=== PATIENT | female | born 1955 | race Caucasian/White ===

== ENCOUNTER 2017-02-07 18:24 | Observation (INO) ==
[2017-02-07] MEDS ORDERED: Ipratropium/Albuterol Neb 3 ML IH ONE ×2 (18:39→19:22)
[2017-02-07 19:05] LABS: Basophils # 0.1 K/mcL (0.0-0.2); Basophils % 0.6 %; Eosinophils # 0.1 K/mcL (0.0-0.6); Eosinophils % 1.2 %; Hematocrit 38.4 % (35.3-44.9); Hemoglobin 12.5 g/dL (11.5-15.4); Immature Granulocytes % 0.3 % (0-4); Lymphocytes # 3.7 K/mcL (0.6-4.6); Lymphocytes % 37.2 %; Mean Corpuscular HGB Conc 32.6 g/dL (31.6-35.5); Mean Corpuscular Hemoglobin 29.1 pg (28.0-33.3); Mean Corpuscular Volume 89.5 fL (83.0-100.0); Mean Platelet Volume 9.1 fL (9.4-12.4); Monocytes # 0.6 K/mcL (0.0-1.3); Monocytes % 6.4 %; Neutrophils # 5.4 K/mcL (1.6-8.9); Platelet Count 250 K/mcL (140-400); Red Blood Count 4.29 M/mcL (3.82-4.97); Segmented Neutrophils % 54.3 %
[2017-02-07 19:11] LABS: INR 1.1; Prothrombin Time 11.8 Seconds (9.4-12.1)
[2017-02-07] MEDS ORDERED: Ipratropium/Albuterol Neb 3 ML ONE (19:11)
[2017-02-07 19:14] LABS: Activated Partial Thrombo Time 24.8 Seconds (26.0-36.0)
[2017-02-07 19:19] LABS: Alanine Aminotransferase 20 Units/L (0-55); Albumin 4.2 g/dL (3.5-5.0); Albumin/Globulin Ratio 1.5 (1.1-2.2); Alkaline Phosphatase 85 Units/L (38-126); Aspartate Amino Transferase 23 Units/L (5-34); BUN/Creatinine Ratio 9 (6-26); Bilirubin,Direct 0.2 mg/dL (0.0-0.5); Bilirubin,Indirect 0.2 mg/dL (0.0-1.2); Bilirubin,Total 0.4 mg/dL (0.2-1.2); Blood Urea Nitrogen 18 mg/dL (7-20); Calcium 9.6 mg/dL (8.6-10.8); Carbon Dioxide 23 mEq/L (19-29); Chloride 105 mEq/L (98-109); Ethanol < 10 mg/dL (0-10); Globulin 2.8 g/dL (2.4-3.5); Glucose 103 mg/dL (70-99); Osmolality,Calculated 290 (280-300); Potassium 4.1 mEq/L (3.5-4.5); Sodium 139 mEq/L (136-145); eGFR For African Americans 30 (> 60); eGFR For Non-African Americans 25 (> 60)
--- NOTE | 2017-02-07 19:25 | Emergency Department Note ---
Disposition Clinical Impression: TIA (transient ischemic attack) Qualifiers: Transient cerebral ischemia type: unspecified Qualified Code(s): G45.9 - Transient cerebral ischemic attack, unspecified Disposition: Admitted As Inpatient Condition: Fair Altered Mental Status HPI - General Chief Complaint: ED Altered Mental Status Stated Complaint: "talking out of her head", sweating, SOB Time Seen by Provider: 02/07/17 18:38 Source: patient Limitations: no limitations Vital Signs Reviewed: Yes - History of Present Illness HPI Narrative: Patient is 61-year-old female past medical history of MS with 1 stent and COPD presented to the ED with shortness of breath and dysarthria. On 01/19/17, patient came in with generalized weakness and trouble speaking patient had a CT scan that showed no acute intercranial abnormalities. Patient was advised to stay and BNP admitted the patient left AMA. Patient has had no problems for the last week and a half but today the patient's other son came in with her because he states that she was having tangential intermittent statements that were unrelated to the conversation. Her sons girlfriend is a nurse and said she thought he she was having mini strokes. Patient's son noticed this activity between 5-6PM. Patient is on Plavix. Patient has not noticed fevers, cough, diarrhea, abdominal pain, rashes. - Related Data Home Medications Medication Instructions Recorded Confirmed ALPRAZolam [Xanax 1 MG Tablet] 3 mg PO TID PRN 02/07/17 02/08/17 Aspirin [Lo-Dose Aspirin EC] 81 mg PO DAILY 02/07/17 02/08/17 BuPROPion SR (12 HR) [Wellbutrin 150 mg PO BID 02/07/17 02/08/17 SR] Cholecalciferol (D-3) [Vitamin D] 5,000 unit PO BID 02/07/17 02/08/17 Clopidogrel Bisulfate [Plavix] 75 mg PO DAILY 02/07/17 02/08/17 HYDROcodone/Acet 10/325 mg [[place] 1 tab PO Q4HR PRN 02/07/17 02/08/17 10-325 mg] Lisinopril [Zestril] 20 mg PO DAILY 02/07/17 02/08/17 Metoprolol [Lopressor] 25 mg PO BID 02/07/17 02/08/17 Nitroglycerin [Nitrostat] 0.4 mg SL PRN PRN 02/07/17 02/08/17 Omeprazole [PriLOSEC] 20 mg PO DAILY 02/07/17 02/08/17 Rosuvastatin [Crestor] 40 mg PO HS 02/07/17 02/08/17 Venlafaxine HCl [Venlafaxine HCl 150 mg PO BID 02/07/17 02/08/17 ER] Zolpidem [Ambien] 5 mg PO HS 02/07/17 02/08/17 Allergies Allergy/AdvReac Type Severity Reaction Status Date / Time celecoxib [From Celebrex] Allergy Hives Verified 01/19/17 14:39 Review of Systems: ROS: constitutional: admits to dizziness Denies fever, chills, weakness, HEENT: denies Headaches, changes in vision Resp: admits to shortness of breath denies coughing CV: Denies chest pain, lower extremity edema GI: Denies nausea, vomiting, diarrhea, constipation, hematochezia, abdominal pain Skin: Denies rashes, new lesions All systems ED: reviewed and negative except as stated. Review of Systems: As Per HPI Past Medical History - Past Medical History Medical history: Reports: hyperlipidemia, hypertension, myocardial infarction Psychiatric history: Reports: anxiety - Social History Smoking Status: Never smoker Smokeless Tobacco Status: No Alcohol use: Reports: none Drug use: Reports: none Physical Exam Constitutional: Alert, in no acute distress, well nourished, well developed. Head: Normocephalic, atraumatic, normal contour and symmetric, no masses, lesions or scars Heart: Normal, regular rate and rhythm, no murmurs Lungs: Bibasilar crackles worse in R basilar region, Clear to auscultation, no wheezes, rales, or rhonchi Abdomen: Soft, nondistended, nontender, and no masses palpable, bowel sounds present and normal, no guarding or rigidity. Extremities: No clubbing, cyanosis, or edema, radial pulse +2/4, capillary refill <2sec. Skin: Skin warm and dry, no lesions, no rashes, no jaundice Neurologic: negative pronator drift, Cranial nerves II through XII intact, no focal deficits, strength within normal limits in all extremities and equal bilaterally, NIH=0 Psych: Cooperative with exam, good eye contact, cognitive function intact, judgment good insight good, speech clear, thought process logical, and goal directed - General Limitations: no limitations General appearance: alert, in no apparent distress Course Course Narrative: Patient is 61-year-old female past medical history of MS with 1 stent and COPD presented to the ED with shortness of breath and dysarthria. Physical exam showed no neurological deficits. Cardiac workup, drug screen and head CT were obtained. Cardiac workup was negative but creatinine was elevated at 2.02 from a baseline last year of 0.88. Head CT was negative for acute intracranial abnormalities. Drug screen and UA were unable to be obtained in the ED due to patient's inability to urinate. Chest x-ray for shortness of breath showed no acute abnormalities. Patient was given a DuoNeb treatment and shortness of breath resolved. Patient was initially placed on 4 L of oxygen nasal cannula by request but removed oxygen herself after the DuoNeb. Patient was given 1 L bolus of normal saline in the ED and if unable to urinate will be cath-ed on the floor. Hospitalist was called and accepted the patient for TIA workup and acute kidney failure. Vital Signs Temperature 97.8 F 02/07/17 18:25 Pulse Rate 103 02/07/17 18:25 Respiratory Rate 18 02/07/17 18:25 Blood Pressure 91/59 02/07/17 18:25 O2 Sat by Pulse Oximetry 91 02/07/17 18:25 Temperature 98.0 F 02/08/17 10:44 Pulse Rate 83 02/08/17 10:44 Respiratory Rate 18 02/08/17 10:44 Blood Pressure 104/75 02/08/17 10:44 O2 Sat by Pulse Oximetry 94 02/08/17 10:44 Oxygen Delivery Oxygen Delivery Nasal Cannula Altered Mental Status - MDM Narrative Medical decision making narrative: Patient is a 59-year-old female with a past medical history of one stent and previous ED visit 01/19/17 for confusion and dysarthria patient and presented today to the ED with with similar symptoms and shortness of breath and was admitted to the [facility] floor stable for workup for TIA and acute kidney injury. - Medical Records Medical records reviewed: Yes I reviewed the patient's medical records. - Lab Data Lab results reviewed: Yes I reviewed the patient's lab results. Lab results narrative: All Lab Results (24 Hours) 08/02/07/17 02/07/17 Range/Units 18:59 18:59 18:59 WBC 10.0 (4.3-11.1) K/mcL RBC 4.29 (3.82-4.97) M/mcL Hgb 12.5 (11.5-15.4) g/dL Hct 38.4 (35.3-44.9) % MCV 89.5 (83.0-100.0) fL MCH 29.1 (28.0-33.3) pg MCHC 32.6 (31.6-35.5) g/dL RDW 13.0 (11.5-14.5) % Plt Count 250 (140-400) K/mcL MPV 9.1 L (9.4-12.4) fL Immature Gran % 0.3 (0-4) % Seg Neutrophils % 54.3 % Lymphocytes % 37.2 % Monocytes % 6.4 % Eosinophils % 1.2 % Basophils % 0.6 % Neutrophils # 5.4 (1.6-8.9) K/mcL Lymphocytes # 3.7 (0.6-4.6) K/mcL Monocytes # 0.6 (0.0-1.3) K/mcL Eosinophils # 0.1 (0.0-0.6) K/mcL Basophils # 0.1 (0.0-0.2) K/mcL PT 11.8 (9.4-12.1) Seconds INR 1.1 APTT 24.8 L (26.0-36.0) Seconds Sodium 139 (136-145) mEq/L Potassium 4.1 (3.5-4.5) mEq/L Chloride 105 (98-109) mEq/L Carbon Dioxide 23 (19-29) mEq/L BUN 18 (7-20) mg/dL Creatinine 2.02 H (0.57-1.11) mg/dL Est GFR ( Amer) 30 L (> 60) Est GFR (Non-Af Amer) 25 L (> 60) BUN/Creatinine Ratio 9 (6-26) Glucose 103 H (70-99) mg/dL POC Glucose (58-89) Calculated Osmolality 290 (280-300) Calcium 9.6 (8.6-10.8) mg/dL Total Bilirubin 0.4 (0.2-1.2) mg/dL Direct Bilirubin 0.2 (0.0-0.5) mg/dL Indirect Bilirubin 0.2 (0.0-1.2) mg/dL AST 23 (5-34) Units/L ALT 20 (0-55) Units/L Alkaline Phosphatase 85 (38-126) Units/L Ammonia (18-72) mcmol/L Troponin I (0-0.03) ng/mL Serum Total Protein 7.0 (6.0-8.3) g/dL Albumin 4.2 (3.5-5.0) g/dL Globulin 2.8 (2.4-3.5) g/dL Albumin/Globulin Ratio 1.5 (1.1-2.2) TSH 2.896 (0.350-4.840) mcIU/mL Ethyl Alcohol < 10 (0-10) mg/dL 02/07/17 02/07/17 02/07/17 Range/Units 18:59 18:59 19:10 WBC (4.3-11.1) K/mcL RBC (3.82-4.97) M/mcL Hgb (11.5-15.4) g/dL Hct (35.3-44.9) % MCV (83.0-100.0) fL MCH (28.0-33.3) pg MCHC (31.6-35.5) g/dL RDW (11.5-14.5) % Plt Count (140-400) K/mcL MPV (9.4-12.4) fL Immature Gran % (0-4) % Seg Neutrophils % % Lymphocytes % % Monocytes % % Eosinophils % % Basophils % % Neutrophils # (1.6-8.9) K/mcL Lymphocytes # (0.6-4.6) K/mcL Monocytes # (0.0-1.3) K/mcL Eosinophils # (0.0-0.6) K/mcL Basophils # (0.0-0.2) K/mcL PT (9.4-12.1) Seconds INR APTT (26.0-36.0) Seconds Sodium (136-145) mEq/L Potassium (3.5-4.5) mEq/L Chloride (98-109) mEq/L Carbon Dioxide (19-29) mEq/L BUN (7-20) mg/dL Creatinine (0.57-1.11) mg/dL Est GFR ( Amer) (> 60) Est GFR (Non-Af Amer) (> 60) BUN/Creatinine Ratio (6-26) Glucose (70-99) mg/dL POC Glucose 95 H (58-89) Calculated Osmolality (280-300) Calcium (8.6-10.8) mg/dL Total Bilirubin (0.2-1.2) mg/dL Direct Bilirubin (0.0-0.5) mg/dL Indirect Bilirubin (0.0-1.2) mg/dL AST (5-34) Units/L ALT (0-55) Units/L Alkaline Phosphatase (38-126) Units/L Ammonia 27 (18-72) mcmol/L Troponin I 0.00 (0-0.03) ng/mL Serum Total Protein (6.0-8.3) g/dL Albumin (3.5-5.0) g/dL Globulin (2.4-3.5) g/dL Albumin/Globulin Ratio (1.1-2.2) TSH (0.350-4.840) mcIU/mL Ethyl Alcohol (0-10) mg/dL Result diagrams: 02/08/17 01:11 02/08/17 01:11 Lab Results 02/07/17 02/07/17 02/07/17 Range/Units 18:59 18:59 18:59 WBC 10.0 (4.3-11.1) K/mcL RBC 4.29 (3.82-4.97) M/mcL Hgb 12.5 (11.5-15.4) g/dL Hct 38.4 (35.3-44.9) % MCV 89.5 (83.0-100.0) fL MCH 29.1 (28.0-33.3) pg MCHC 32.6 (31.6-35.5) g/dL RDW 13.0 (11.5-14.5) % Plt Count 250 (140-400) K/mcL MPV 9.1 L (9.4-12.4) fL Immature Gran % 0.3 (0-4) % Seg Neutrophils % 54.3 % Lymphocytes % 37.2 % Monocytes % 6.4 % Eosinophils % 1.2 % Basophils % 0.6 % Neutrophils # 5.4 (1.6-8.9) K/mcL Lymphocytes # 3.7 (0.6-4.6) K/mcL Monocytes # 0.6 (0.0-1.3) K/mcL Eosinophils # 0.1 (0.0-0.6) K/mcL Basophils # 0.1 (0.0-0.2) K/mcL PT 11.8 (9.4-12.1) Seconds INR 1.1 APTT 24.8 L (26.0-36.0) Seconds Sodium 139 (136-145) mEq/L Potassium 4.1 (3.5-4.5) mEq/L Chloride 105 (98-109) mEq/L Carbon Dioxide 23 (19-29) mEq/L BUN 18 (7-20) mg/dL Creatinine 2.02 H (0.57-1.11) mg/dL Est GFR ( Amer) 30 L (> 60) Est GFR (Non-Af Amer) 25 L (> 60) BUN/Creatinine Ratio 9 (6-26) Glucose 103 H (70-99) mg/dL POC Glucose (58-89) Calculated Osmolality 290 (280-300) Calcium 9.6 (8.6-10.8) mg/dL Total Bilirubin 0.4 (0.2-1.2) mg/dL Direct Bilirubin 0.2 (0.0-0.5) mg/dL Indirect Bilirubin 0.2 (0.0-1.2) mg/dL AST 23 (5-34) Units/L ALT 20 (0-55) Units/L Alkaline Phosphatase 85 (38-126) Units/L Ammonia (18-72) mcmol/L Troponin I (0-0.03) ng/mL Serum Total Protein 7.0 (6.0-8.3) g/dL Albumin 4.2 (3.5-5.0) g/dL Globulin 2.8 (2.4-3.5) g/dL Albumin/Globulin Ratio 1.5 (1.1-2.2) TSH 2.896 (0.350-4.840) mcIU/mL Ethyl Alcohol < 10 (0-10) mg/dL 02/07/17 02/07/17 02/07/17 Range/Units 18:59 18:59 19:10 WBC (4.3-11.1) K/mcL RBC (3.82-4.97) M/mcL Hgb (11.5-15.4) g/dL Hct (35.3-44.9) % MCV (83.0-100.0) fL MCH (28.0-33.3) pg MCHC (31.6-35.5) g/dL RDW (11.5-14.5) % Plt Count (140-400) K/mcL MPV (9.4-12.4) fL Immature Gran % (0-4) % Seg Neutrophils % % Lymphocytes % % Monocytes % % Eosinophils % % Basophils % % Neutrophils # (1.6-8.9) K/mcL Lymphocytes # (0.6-4.6) K/mcL Monocytes # (0.0-1.3) K/mcL Eosinophils # (0.0-0.6) K/mcL Basophils # (0.0-0.2) K/mcL PT (9.4-12.1) Seconds INR APTT (26.0-36.0) Seconds Sodium (136-145) mEq/L Potassium (3.5-4.5) mEq/L Chloride (98-109) mEq/L Carbon Dioxide (19-29) mEq/L BUN (7-20) mg/dL Creatinine (0.57-1.11) mg/dL Est GFR ( Amer) (> 60) Est GFR (Non-Af Amer) (> 60) BUN/Creatinine Ratio (6-26) Glucose (70-99) mg/dL POC Glucose 95 H (58-89) Calculated Osmolality (280-300) Calcium (8.6-10.8) mg/dL Total Bilirubin (0.2-1.2) mg/dL Direct Bilirubin (0.0-0.5) mg/dL Indirect Bilirubin (0.0-1.2) mg/dL AST (5-34) Units/L ALT (0-55) Units/L Alkaline Phosphatase (38-126) Units/L Ammonia 27 (18-72) mcmol/L Troponin I 0.00 (0-0.03) ng/mL Serum Total Protein (6.0-8.3) g/dL Albumin (3.5-5.0) g/dL Globulin (2.4-3.5) g/dL Albumin/Globulin Ratio (1.1-2.2) TSH (0.350-4.840) mcIU/mL Ethyl Alcohol (0-10) mg/dL - Radiology Data Radiology results reviewed: Yes I reviewed the patient's radiology results. Head CT 02/07/17 19:21 IMPRESSION: No acute intracranial abnormality. D/ / Lamonte Hall MD / Lamonte Hall MD Interpreting Provider: Lamonte Hall MD Chest X-Ray 02/07/17 20:37 IMPRESSION: No acute process. D/ / Yon Floyd MD / Yon Floyd MD Interpreting Provider: Yon Floyd MD - EKG Data EKG attestation: Yes I reviewed and interpreted this EKG. EKG shows normal: sinus rhythm Rate: normal Rhythm: NSR [place]/QRS: normal When compared to previous EKG there are: no significant changes Interpretation: no acute changes Attestation Statement - Attestation Attestation: I examined this patient and my medical decision-making was reviewed with the Resident Physician. I agree with the documented findings, disposition and treatment plan as described except to the extent set forth below. In the last 2 weeks the patient has had several episodes of dysarthria and confusion when she speaks to family members. The patient states she feels fine and does not seem to be a problem to her the family is very concerned. Also note she is prescribed several medications include Vicodin 180 tablets monthly, Xanax, Ambien, and also antidepressants. We will omit her to the hospital service for TIA rule out medication etiology could also be a possibility for her intermittent symptoms.
[2017-02-07 19:39] LABS: Thyroid Stimulating Hormone 2.896 mcIU/mL (0.350-4.840)
[2017-02-07] MEDS ORDERED: 0.9 % Sodium Chloride 1,000 ML IVC ONE ×2 (21:26→23:57)
[2017-02-07] MEDS ORDERED: Naloxone 0.4 MG/ML INJ IVP PRN (22:20)
[2017-02-07] MEDS ORDERED: Albuterol 2.5 MG/3 ML NEBULIZER IH PRN (22:37)
[2017-02-07] MEDS ORDERED: Nitroglycerin 0.4 MG TAB.SUBL SL PRN (22:38)
[2017-02-07] MEDS ORDERED: 0.9 % Sodium Chloride 1,000 ML IVC SCH (22:45)
--- NOTE | 2017-02-07 22:53 | Internal Med History&Physical ---
<Minnie Liu - Last Filed: 02/07/17 23:30> Date of Encounter: 02/07/17 Time of Encounter: 22:00 Assessment and Plan (1) TIA (transient ischemic attack) Current visit: Yes Status: Acute 1 patient has been experiencing intermittent apraxia, expressive aphasia as well as disequilibrium and confusion. Presently her symptoms have resolved. She had similar symptoms approximately 2-3 weeks ago was seen in the ER and refused admission and signed out AMA. She also was recently treated for shingles and was prescribed acyclovir. Do not suspect shingles are contributing to her symptoms she has been properly treated she is afebrile no headache or nuchal rigidity. She does have ELA is on multiple medications for anxiety and pain medication. This could be contributing to her mental state. We will hold these medications for now and avoid any sedating meds. 2 we will continue with neuro checks 3 continuous cardiac monitoring 4 we will obtain cardiac echo 5 obtain carotid Dopplers 6 we will obtain lipid profile and continue with statin 7 continue with aspirin and Plavix 8 obtain MRI of head and brain without contrast 9 consult neurology as needed 10 maintain systolic blood pressure less than 160 11 encouraged patient to stop using nicotine Qualifiers: Transient cerebral ischemia type: unspecified Qualified Code(s): G45.9 - Transient cerebral ischemic attack, unspecified (2) ELA (acute kidney injury) Current visit: Yes Status: Acute 1 patient's creatinine is 2.02 appears her baseline is less than 1. Patient is on an Kavin and presently her systolic blood pressure is in the low 90s unsure if patient has been using any NSAIDs. Suspect AK as related to hypoperfusion We will hold lisinopril for now. Continue to monitor creatinine 2 we will give IV fluids overnight 3 avoid nephrotoxins (3) HTN (hypertension) Current visit: No Status: Chronic 1 presently blood pressure is in the low to mid 90s. We will hold lisinopril for now and reevaluate 2 continue with IV fluids 3 monitor intake and output 4 low-sodium diet Qualifiers: Hypertension type: essential hypertension Qualified Code(s): I10 - Essential (primary) hypertension (4) CAD (coronary artery disease) Current visit: No Status: Chronic 1patient has history of coronary artery dise with a single stent placement. 2010 100% stent stenosis in LAD with good collaterals. We will continue with dual antiplatelets as well as statins 2 we will continue with beta amy 3 obtain lipid profile 4 cardiac diet 5 nitroglycerin as needed for chest pain Qualifiers: Coronary Disease-Associated Artery/Lesion type: [place] artery [place] vs. transplanted heart: [place] heart Associated angina: without angina Qualified Code(s): I25.10 - Atherosclerotic heart disease of [place] coronary artery without angina pectoris (5) Thyroid disease Current visit: Yes Status: Acute TSH is 2.89 we will continue to monitor (6) DVT prophylaxis Current visit: No Status: Chronic sCDs Internal Medicine - H&P: HPI Chief complaint: Dysarthria Admitted From: Emergency Dept Plans for Post Hospital Care: Home History of present illness: Ms. Browning is a 61 year old female past medical history of COPD non-oxygen dependent coronary disease stent placement 2004 reevaluation of stent in 2010 did show 100% stent stenosis of LAD with good collaterals hypertension thyroid disease. Patient presented to the ER today with complaints of shortness of breath and dysarthria. According to patient on 01/19/17 she experienced similar symptoms where she had generalized weakness and difficulty speaking and presented to the ER at that time CT of her head was obtained with no acute intracranial abnormalities. Patient declined admission and further workup and signed out AMA. On 01/15/17 patient did experience and was diagnosed with shingles. She was prescribed acyclovir which she completed. Presently she denies any current lesions, pain however does admit to pruritus. Today the patient has been experiencing intermittent apraxia and xpressive aphasia. She had some occasional disequilibrium and confusion. She denies any fevers chills nausea vomiting diarrhea vision changes headaches, nuchal rigidity recent falls or head trauma. Patient does have past history of smoking-she presently vapes, she denies any illicit drug use or alcohol use. She presented to the ER with the above symptoms. According to ER records lab work did show an elevation in her creatinine at 2.02 and sees her baseline is less than 1 troponin was 0 TSH is 2.89 she is afebrile with no leukocytosis CT of head was obtained with no intracranial abnormalities noted. Chest x-ray was clear UA and drug screen has been ordered. She has been admitted for further workup and evaluation. Presently patient is alert appropriate following simple commands cranial nerves 2 through 12 are intact. Lung sounds are clear heart sounds are regular S1 and S2 with no rubs, discussed was noted. Abdomen soft nontender no pedal edema noted. Patient in son state that she is presently at her neurological baseline and that her symptoms have resolved. She is hemodynamically stable at this time I reveiwed this case with Dr Yusuf who agrees with plan Past Med Surg Social Fam HX - Past Medical History Medical history: hyperlipidemia, hypertension, myocardial infarction Psychiatric history: anxiety - Social History Smoking Status: Never smoker Smokeless Tobacco Status: No Alcohol use: none Drug use: none - Family History Father Hx Family Cardiac Disorders: Yes (SD) Hx Family Respiratory Disorders: No Hx Family Cancer: Yes (Esophagus) Hx Family GI Disorders: No Hx Family Genitourinary Disorders: No Hx Family Endocrine Disorder: No Hx Family Musculoskeletal Disorders: No Hx Family Neuromuscular Disorders: No Hx Family Neurologic Disorders: No Hx Family HEENT Disorders: No Hx Family Autoimmune Disorders: No Hx Family Reproductive Disorders: No Hx Family Psychosocial Disorders: No Hx Family Medical Disorders: No Sister Hx Family Cardiac Disorders: No Hx Family Respiratory Disorders: No Hx Family Cancer: Yes (Lung) Hx Family GI Disorders: No Hx Family Genitourinary Disorders: No Hx Family Endocrine Disorder: No Hx Family Musculoskeletal Disorders: No Hx Family Neuromuscular Disorders: No Hx Family Neurologic Disorders: No Hx Family HEENT Disorders: No Hx Family Autoimmune Disorders: No Hx Family Reproductive Disorders: No Hx Family Psychosocial Disorders: No Hx Family Medical Disorders: No Mother Hx Family Cardiac Disorders: Yes (CHF) Hx Family Respiratory Disorders: No Hx Family Cancer: No Hx Family GI Disorders: No Hx Family Genitourinary Disorders: No Hx Family Endocrine Disorder: No Hx Family Musculoskeletal Disorders: No Hx Family Neuromuscular Disorders: No Hx Family Neurologic Disorders: No Hx Family HEENT Disorders: No Hx Family Autoimmune Disorders: No Hx Family Reproductive Disorders: No Hx Family Psychosocial Disorders: No Hx Family Medical Disorders: No Internal Medicine - H&P: Meds ALPRAZolam [Xanax 1 MG Tablet] 3 mg PO TID PRN 02/07/17 [History] Aspirin [Lo-Dose Aspirin EC] 81 mg PO DAILY 02/07/17 [History] BuPROPion SR (12 HR) [Wellbutrin SR] 150 mg PO BID 02/07/17 [History] Cholecalciferol (D-3) [Vitamin D] 5,000 unit PO BID 02/07/17 [History] Clopidogrel Bisulfate [Plavix] 75 mg PO DAILY 02/07/17 [History] HYDROcodone/Acet 10/325 mg [[place] 10-325 mg] 1 tab PO Q4HR PRN 02/07/17 [History ] Lisinopril [Zestril] 20 mg PO BID 02/07/17 [History] Metoprolol [Lopressor] 25 mg PO BID 02/07/17 [History] Nitroglycerin [Nitrostat] 0.4 mg SL PRN PRN 02/07/17 [History] Omeprazole [PriLOSEC] 20 mg PO DAILY 02/07/17 [History] Rosuvastatin [Crestor] 40 mg PO HS 02/07/17 [History] Venlafaxine HCl [Venlafaxine HCl ER] 150 mg PO BID 02/07/17 [History] Zolpidem [Ambien] 5 mg PO HS 02/07/17 [History] Allergies celecoxib [From Celebrex] Allergy (Verified 01/19/17 14:39) Hives All Systems PM: A 10-system review of systems was performed and is negative for pertinent findings except as documented above in the HPI. - Constitutional Constitutional: no chills, no fever(s), no night sweats - EENT Eyes: no change in vision, no discharge, no pain, no photophobia Nose, mouth and throat: no dysphagia, no nasal discharge, no neck pain, no sore throat - Cardiovascular Cardiovascular ROS IM: no chest pain, no diaphoresis, no dyspnea, no lightheadedness, no palpitations, no syncope - Respiratory Respiratory: no cough, no dyspnea, no wheezing, no excessive phlegm production - Gastrointestinal Gastrointestinal: no abdominal pain, no diarrhea, no hematemesis, no hematochezia, no melena, no nausea, no vomiting - Genitourinary Genitourinary: no change in urinary stream, no dysuria, no flank pain, no hematuria - Musculoskeletal Musculoskeletal ROS IM: no numbness, no tingling - Integumentary Integumentary IM: pruritus - Neurological Neurological ROS: abnormal speech, behavioral changes, disequilibrium - Constitutional Vitals: Temp Pulse Resp BP Pulse Ox 98.5 F 83 16 90/62 94 02/07/17 22:25 02/07/17 22:25 02/07/17 22:25 02/07/17 22:25 02/07/17 22:25 General appearance: Present: A&O X 3, answers questions appropriately - Head Head exam: Present: atraumatic, normocephalic - Eye Eye exam: Present: EOMI, PERRL, conjuntiva pink, sclera anicteric Pupils: Present: PERRL - Neck Neck exam general surgery: Present: supple, trachea midline. Absent: lymphadenopathy - Respiratory Respiratory exam: Present: CTAB. Absent: accessory muscle use, rales, rhonchi, wheezes - Cardiovascular Cardiovascular exam: Present: RRR, +S1, +S2. Absent: diastolic murmur, gallop, rubs, systolic murmur - GI/Abdominal GI/Abdominal exam: Present: normal bowel sounds, soft, no peritoneal signs. Absent: distended, tenderness - Extremities Exam Extremities exam: Present: warm, radial pulses palpable and symmetrical. Absent : calf tenderness, cyanotic, pedal edema - Neurological Exam Neurological exam: Present: CN II-XII intact, oriented X3, no focal deficits. Absent: pronater drift, facial droop, speech deficit - Skin Skin exam: Present: dry, intact Internal Med - H&P Results - Labs CBC & Chem 7: 02/07/17 18:59 02/07/17 18:59 - EKG Data EKG shows normal: sinus rhythm - EKG Data Prior EKG available for review: yes When compared to previous EKG: there is no significant change - Diagnostic Studies Other Images Additional comments: Head CT 02/07/17 19:21 IMPRESSION: No acute intracranial abnormality. D/ / Lamonte Hall MD / Lamonte Hall MD Interpreting Provider: Lamonte Hall MD Chest X-Ray 02/07/17 20:37 IMPRESSION: No acute process. D/ / Yon Floyd MD / Yon Floyd MD Interpreting Provider: Yon Floyd MD <Ebenezer Yusuf - Last Filed: 02/07/17 23:58> Date of Encounter: 02/07/17 Internal Medicine - H&P: HPI History of present illness: Ms. Browning is a 61 year old female All Systems PM: A 10-system review of systems was performed and is negative for pertinent findings except as documented above in the HPI. - Constitutional Vitals: Temp Pulse Resp BP Pulse Ox 98.5 F 83 16 90/62 94 02/07/17 22:25 02/07/17 22:25 02/07/17 22:25 02/07/17 22:25 02/07/17 22:25 Internal Med - H&P Results - Labs CBC & Chem 7: 02/07/17 18:59 02/07/17 18:59 - Attending Attestation I independently obtained history and examined this patient and my medical decision-making was reviewed with the nurse practitioner, Minnie Liu. I agree with the documented findings, disposition and treatment plan as described. My findings are summarized below: The patient is currently awake alert oriented 4, displayed no focal neurological deficits. Her blood pressure as low, consistently 90s over 50s. Plan: TIA - we will initiate the stroke workup Hypotension and acute kidney injury possibly related to medication and hypoperfusion: Stop antihypertensive medication, avoid nephrotoxins. I will order a bolus of normal saline.
[2017-02-08 01:41] LABS: Calcium 8.9 mg/dL (8.6-10.8); Chol/HDL Ratio 2.9 (0-4.9); Magnesium 2.1 mg/dL (1.6-2.6); Potassium 4.3 mEq/L (3.5-4.5)
[2017-02-08] MEDS: 0.9 % Sodium Chloride 1,000 ML IVC SCH ×2 (02:15→20:58)
[2017-02-08 03:22] LABS: Bilirubin,Urine Negative (Negative); Blood,Urine Negative (Negative); Clarity,Urine Clear (Clear); Color,Urine Yellow (Yellow); Glucose,Urine (UA) Normal (Normal); Ketones,Urine Negative (Negative); Specific Gravity,Urine 1.011 (1.010-1.025)
[2017-02-08 03:23] LABS: Amphetamine Screen,Urine Negative ng/mL (Cutoff=1000); Barbiturate Screen,Urine Negative ng/mL (Cutoff=200); Benzodiazepines Screen,Urine Negative ng/mL (Cutoff=200); Cannabinoid Screen,Urine Positive ng/mL (Cutoff = 50); Cocaine Screen,Urine Negative ng/mL (Cutoff= 300); Leukocyte Esterase,Urine Small (Negative); Nitrite,Urine Negative (Negative); Opiate Screen,Urine Positive ng/mL (Cutoff=300); PH,Urine 5.5 pH Units (5.0-8.0); Phencyclidine Screen,Urine Negative ng/mL (Cutoff=25); Protein,Urine Negative (Neg-Trace); Urobilinogen,Urine Normal (Normal)
[2017-02-08 03:30] LABS: Squamous Epithelial Cell,Urine Few per lpf (None-Few)
[2017-02-08 06:04] LABS: Basophils # 0.1 K/mcL (0.0-0.2); Basophils % 0.6 %; Eosinophils # 0.1 K/mcL (0.0-0.6); Hematocrit 35.2 % (35.3-44.9); Hemoglobin 11.1 g/dL (11.5-15.4); Immature Granulocytes % 0.5 % (0-4); Lymphocytes # 2.1 K/mcL (0.6-4.6); Lymphocytes % 24.4 %; Mean Corpuscular HGB Conc 31.5 g/dL (31.6-35.5); Mean Corpuscular Hemoglobin 28.8 pg (28.0-33.3); Mean Corpuscular Volume 91.2 fL (83.0-100.0); Mean Platelet Volume 9.5 fL (9.4-12.4); Monocytes # 0.7 K/mcL (0.0-1.3); Monocytes % 7.9 %; Neutrophils # 5.7 K/mcL (1.6-8.9); Platelet Count 199 K/mcL (140-400); Red Blood Count 3.86 M/mcL (3.82-4.97); Red Cell Distribution Width 13.2 % (11.5-14.5); Segmented Neutrophils % 65.6 %
[2017-02-08] MEDS: BuPROPion SR (12 HR) 150 MG TABLET PO SCH ×2 (08:16→21:02)
[2017-02-08] MEDS: Aspirin Enteric Coated 81 MG Tablet PO SCH (08:16)
--- NOTE | 2017-02-08 10:13 | Electrocardiograph Report ---
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
--- NOTE | 2017-02-08 19:17 | Internal Med Progress Note ---
Date of Encounter: 02/08/17 Time of Encounter: 19:00 - Assessment and plan (1) Abdominal pain Current Visit: Yes Status: Acute Assessment and plan: Patient complaining of severe abdominal pain. She states that it hurts all over but is worse in the epigastric area, suprapubic area, and radiating around to both flanks. On examination, abdomen is distended but soft with hyperactive bowel sounds. Exquisitely tender to palpation in suprapubic area, epigastric area. Positive CVA tenderness bilaterally. Abnormal urinalysis noted-concern for possible pyelo-in any event, she appears to have acute intra-abdominal processes. We will also check LFTs and gallbladder. Abdominal CT without contrast. (2) Abnormal urinalysis Current Visit: Yes Status: Acute Assessment and plan: possible UTI- patient with suprapubic pain and bilateral flank tenderness-we will initiate ceftriaxone with culture pending (3) TIA (transient ischemic attack) Current Visit: Yes Status: Resolved Assessment and plan: No focal neurological weakness is present on examination. The patient's dysarthria has resolved. Carotid ultrasound unremarkable. Echocardiogram was unremarkable with ejection fraction of 65% with mild diastolic dysfunction. Patient dehydrated on examination. MRI negative for acute processes and revealed an old infarct. Head CT negative. ITS Impressions Head CT 02/07/17 19:21 IMPRESSION: No acute intracranial abnormality. D/ / Lamonte Hall MD / Lamonte Hall MD Interpreting Provider: Lamonte Hall MD Brain MRI 02/08/17 09:02 IMPRESSION: 1. No evidence of an acute infarct. 2. Mild-moderate chronic microvascular white matter ischemic disease is noted both supra and infratentorially. 3. There is a chronic subcortical infarct noted in the left superior frontal gyrus. D/ / 02/08/2017 14:43:05 Efrain Gabriel MD / amina Interpreting Provider: Efrain Gabriel MD Echo with Saline Contrast Indications: AMS Impressions: Normal LV systolic function, LVEF 65%. Mild-moderate concentric left ventricular hypertrophy. Mild left ventricular diastolic dysfunction. Normal right ventricular size and function. Mildly dilated left atrium. No evidence of intracardiac shunting with agitated saline contrast (fair quality study). Mild tricuspid regurgitation. Mild-moderate pulmonary hypertension. Estimated RVSP = 46 mmHg. 02/08/17 12:02 - Vascular Preliminary by Oriana Oh [facility] Num: [id number] : 1955 Patient Age: 61 Bilateral Carotid Doppler Completed Very minimal nonstenotic plaque only on Right Left is normal Qualifiers: Transient cerebral ischemia type: unspecified Qualified Code(s): G45.9 - Transient cerebral ischemic attack, unspecified (4) ELA (acute kidney injury) Current Visit: Yes Status: Acute Assessment and plan: unclear causation. Urinalysis slightly abnormal-giving ceftriaxone at this time. Patient with suprapubic tenderness as well as bilateral flank tenderness. Concern for possible pyelonephritis, abdominal CT and urine culture pending (5) HTN (hypertension) Current Visit: No Status: Chronic Assessment and plan: Controlled. Holding FIDENCIO inhibitor at this time secondary to acute kidney injury. Qualifiers: Hypertension type: essential hypertension Qualified Code(s): I10 - Essential (primary) hypertension (6) CAD (coronary artery disease) Current Visit: No Status: Chronic Assessment and plan: Patient denies chest pain. Qualifiers: Coronary Disease-Associated Artery/Lesion type: [place] artery [place] vs. transplanted heart: [place] heart Associated angina: without angina Qualified Code(s): I25.10 - Atherosclerotic heart disease of [place] coronary artery without angina pectoris (7) Thyroid disease Current Visit: Yes Status: Chronic Assessment and plan: TSH normal (8) DVT prophylaxis Current Visit: No Status: Chronic Assessment and plan: IPCs ordered. - Subjective Interval history: Patient seen and examined. On examination, patient sitting upright in bed. Patient complaining of severe pain to her epigastric area, her suprapubic area, and around to her back to bilateral flanks. She denies headache. She denies shortness of breath but is concerned because she feels as if her oxygen levels are low. She states she does not have much of an appetite. She denies any nausea vomiting or diarrhea however. - Constitutional Vitals: Temp Pulse Resp BP Pulse Ox 98.4 F 94 16 137/68 95 02/08/17 18:15 02/08/17 18:15 02/08/17 18:15 02/08/17 18:15 02/08/17 18:15 General appearance: Present: A&O X 3, pleasant, no acute distress, answers questions appropriately - Head Head exam: Present: atraumatic, normocephalic - Eye Eye exam: Present: PERRL, conjuntiva pink, sclera anicteric Pupils: Present: PERRL - Neck Neck exam general surgery: Present: supple, trachea midline. Absent: lymphadenopathy - Respiratory Respiratory exam: Present: CTAB. Absent: accessory muscle use, rales, respiratory distress, rhonchi, wheezes - Cardiovascular Cardiovascular exam: Present: RRR, +S1, +S2. Absent: diastolic murmur, gallop, rubs, systolic murmur - GI/Abdominal GI/Abdominal exam: Present: distended, hyperactive bowel sounds, soft, tenderness (diffuse; worse epig and suprapubic), no peritoneal signs - Extremities Exam Extremities exam: Present: warm, radial pulses palpable and symmetrical. Absent : calf tenderness, cyanotic, pedal edema - Back Exam Back exam: Present: CVA tenderness (L), CVA tenderness (R) - Neurological Exam Neurological exam: Present: alert, CN II-XII intact, normal gait, oriented X3, no focal deficits, strengths equal and symetr throughout. Absent: pronater drift, facial droop, speech deficit - Skin Skin exam: Present: dry, intact, pallor, warm Internal Medicine: Result - Labs CBC & Chem 7: 02/08/17 01:11 02/08/17 01:11 Labs: Short CBC 02/08/17 Range/Units 01:11 WBC 8.7 (4.3-11.1) K/mcL Hgb 11.1 L (11.5-15.4) g/dL Hct 35.2 L (35.3-44.9) % Plt Count 199 (140-400) K/mcL Neutrophils # 5.7 (1.6-8.9) K/mcL BMP 02/08/17 01:11 Sodium 140 Potassium 4.3 Chloride 107 Carbon Dioxide 23 BUN 22 H Creatinine 2.37 H Glucose 115 H Calcium 8.9 Cardiac Enzymes 02/08/17 Range/Units 01:11 Troponin I 0.01 (0-0.03) ng/mL Urine 02/08/17 Range/Units 02:50 Urine Color Yellow (Yellow) Urine Clarity Clear (Clear) Urine pH 5.5 (5.0-8.0) pH Units Ur Specific [place] 1.011 (1.010-1.025) Urine Protein Negative (Neg-Trace) mg/dL Urine Glucose (UA) Normal (Normal) mg/dL - ABG Interpretation ABG results: PT/INR, D-dimer PT 11.8 Seconds (9.4-12.1) 02/07/17 18:59 - Impressions Impressions Brain MRI 02/08/17 09:02 IMPRESSION: 1. No evidence of an acute infarct. 2. Mild-moderate chronic microvascular white matter ischemic disease is noted both supra and infratentorially. 3. There is a chronic subcortical infarct noted in the left superior frontal gyrus. D/ / 02/08/2017 14:43:05 Efrain Gabriel MD / amina Interpreting Provider: Efrain Gabriel MD Consult Discharge Plan - Plan Referrals: Ric Ramirez MD [Primary Care Provider] - 02/17/17 2:00 pm
[2017-02-08] MEDS ORDERED: *HR* Morphine 2 MG/ML SYRINGE IVP PRN (19:22)
[2017-02-08] MEDS ORDERED: Acetaminophen 325 MG TABLET PO PRN (19:22)
[2017-02-08] MEDS ORDERED: Ondansetron 4 MG/2 ML VIAL IVP PRN (19:23)
[2017-02-08] MEDS ORDERED: *HR* Promethazine 25 MG/ML VIAL IVP PRN (19:23)
[2017-02-09] MEDS: *HR* HYDROcodone/Acet 5/325 mg TABLET PO PRN ×2 (04:35→13:15)
[2017-02-09] MEDS: 0.9 % Sodium Chloride 1,000 ML IVC SCH ×5 (05:01→19:30)
[2017-02-09 05:02] LABS: Alanine Aminotransferase 18 Units/L (0-55); Albumin 3.3 g/dL (3.5-5.0); Albumin/Globulin Ratio 1.3 (1.1-2.2); Alkaline Phosphatase 83 Units/L (38-126); Aspartate Amino Transferase 30 Units/L (5-34); BUN/Creatinine Ratio 13 (6-26); Bilirubin,Direct 0.2 mg/dL (0.0-0.5); Bilirubin,Indirect 0.1 mg/dL (0.0-1.2); Bilirubin,Total 0.3 mg/dL (0.2-1.2); Blood Urea Nitrogen 11 mg/dL (7-20); Calcium 8.8 mg/dL (8.6-10.8); Carbon Dioxide 25 mEq/L (19-29); Chloride 112 mEq/L (98-109); Globulin 2.5 g/dL (2.4-3.5); Glucose 92 mg/dL (70-99); Lipase 30 Units/L (8-78); Osmolality,Calculated 295 (280-300); Potassium 4.1 mEq/L (3.5-4.5); Sodium 143 mEq/L (136-145); Total Protein 5.8 g/dL (6.0-8.3); eGFR For African Americans > 60 (> 60); eGFR For Non-African Americans > 60 (> 60)
[2017-02-09] MEDS: Chloraseptic Spray 177 ML BOTTLE MM PRN ×2 (06:04→10:32)
[2017-02-09] MEDS ORDERED: GI Cocktail 40 ML EACH PO ONE (08:16)
[2017-02-09] MEDS: Aspirin Enteric Coated 81 MG Tablet PO SCH (10:30)
[2017-02-09] MEDS: BuPROPion SR (12 HR) 150 MG TABLET PO SCH ×2 (10:30→20:30)
[2017-02-09] MEDS ORDERED: *HR* Heparin 5,000 UNIT/ML VIAL ONE (10:36)
--- NOTE | 2017-02-09 10:37 | Internal Med Progress Note ---
Date of Encounter: 02/09/17 Time of Encounter: 08:50 - Assessment and plan (1) TIA (transient ischemic attack) Current Visit: Yes Status: Resolved Assessment and plan: Patient states that all of her neurological symptoms have resolved. She denies headache, blurred vision, difficulty with speech, ataxia. She is alert and oriented and interactive. Her head CT was negative for any acute intracranial abnormality. Brain MRI showed no evidence of acute infarct, mild to moderate chronic microvascular changes, chronic subcortical infarct in the left superior frontal gyrus. She has no leukocytosis or fever, she did, however, have an acute kidney injury on arrival, this has since resolved. Echocardiogram showed normal systolic function with an LVEF of 65%, mild LV DD, LV hypertrophy, mildly dilated left atrium, mild TR. Carotid Dopplers revealed very minimal nonstenotic plaque on the right, left is normal. It is possible that patient had a TIA, she also had similar symptoms 2 weeks ago and was seen in emergency department signed out AMA. Her symptoms have resolved. Her risk factors include hypertension and smoking. We will continue to monitor her condition. Qualifiers: Transient cerebral ischemia type: unspecified Qualified Code(s): G45.9 - Transient cerebral ischemic attack, unspecified (2) ELA (acute kidney injury) Current Visit: Yes Status: Resolved Assessment and plan: Renal function has returned to baseline. Creatinine 0.84 GFR is greater than 60. Most likely due to dehydration. Patient has been rehydrated with IV fluids , 0.9 normal saline. 2 new to monitor labs and avoid NSAIDs. (3) HTN (hypertension) Current Visit: No Status: Chronic Assessment and plan: Patient is mildly hypertensive. Hydralazine ordered when necessary. Continue to monitor vital signs. Qualifiers: Hypertension type: essential hypertension Qualified Code(s): I10 - Essential (primary) hypertension (4) CAD (coronary artery disease) Current Visit: No Status: Chronic Assessment and plan: Patient has prior history of stent 11 years ago. She denies chest pain. Continue statin, beta amy, Plavix, aspirin. Qualifiers: Coronary Disease-Associated Artery/Lesion type: [place] artery [place] vs. transplanted heart: [place] heart Associated angina: without angina Qualified Code(s): I25.10 - Atherosclerotic heart disease of [place] coronary artery without angina pectoris (5) Thyroid disease Current Visit: Yes Status: Chronic Assessment and plan: Chronic. TSH within normal limits. (6) Abdominal pain Current Visit: Yes Status: Acute Assessment and plan: Patient states that abdominal pain has improved since yesterday, today she rates it 3-4/10. She was given a GI cocktail and states that it is about a 2/ 10. Patient does have tenderness and right upper quadrant. She states that lower abdominal pain is significantly improved and says that it is about a 1/10. Patient had an abnormal urinalysis and is being currently treated for urinary tract infection. She is getting Rocephin IV and pain has improved since yesterday on arrival. She denies any nausea, vomiting, diarrhea. She says pain is diffuse across upper abdomen and is not worse on the right or left. She does report radiation into her back. The pain is not worse with movement or inspiration. I increased her Prilosec to twice a day and will continue Rocephin. Urine culture is pending. Qualifiers: Abdominal location: unspecified location Qualified Code(s): R10.9 - Unspecified abdominal pain (7) Abnormal urinalysis Current Visit: Yes Status: Acute Assessment and plan: Rocephin IV daily. Culture is pending. (8) DVT prophylaxis Current Visit: No Status: Chronic Assessment and plan: IPCs ordered. Patient is ambulatory in room. - Time Spent With Patient less than 15 minutes - Subjective Interval history: Pt seen and assessed at about 0850 this a.m. She is alert and oriented with clear speech and no focal neurological deficits. She still reports diffuse abdominal pain, however, it is much better than yesterday. Pt has tenderness in RUQ and states that pain is across entire upper abd. She states that low abd pain has, for the most part, resolved. She denies urinary symptoms. She denies change in pain with relation to food. suspect pain could be related to UTI. - Constitutional Vitals: Temp Pulse Resp BP Pulse Ox 98.8 F 83 16 162/84 96 02/09/17 07:38 02/09/17 07:38 02/09/17 07:38 02/09/17 07:38 02/09/17 07:38 General appearance: Present: cooperative, A&O X 3, pleasant, no acute distress, answers questions appropriately - Head Head exam: Present: normal inspection - Eye Eye exam: Present: normal appearance, conjuntiva pink - ENT ENT exam: Present: mucous membranes moist, normal exam, normal external ear exam - Neck Neck exam general surgery: Present: normal inspection. Absent: lymphadenopathy , tenderness - Respiratory Respiratory exam: Present: decreased breath sounds, wheezes. Absent: chest wall tenderness, CTAB, rales, respiratory distress, rhonchi, stridor - Cardiovascular Cardiovascular exam: Present: RRR, +S1, +S2. Absent: clicks, diastolic murmur, gallop, systolic murmur - GI/Abdominal GI/Abdominal exam: Present: normal bowel sounds, soft, tenderness. Absent: distended, hepatomegaly - Extremities Exam Extremities exam: Present: normal capillary refill, warm, radial pulses palpable and symmetrical. Absent: pedal edema, tenderness - Neurological Exam Neurological exam: Present: alert, normal gait, oriented X3, no focal deficits, strengths equal and symetr throughout. Absent: altered, pronater drift, facial droop, speech deficit - Skin Skin exam: Present: dry, intact, normal color, warm. Absent: rash Internal Medicine: Result - Labs CBC & Chem 7: 02/08/17 01:11 02/09/17 04:12 Labs: BMP 02/09/17 04:12 Sodium 143 Potassium 4.1 Chloride 112 H Carbon Dioxide 25 BUN 11 D Creatinine 0.84 D Glucose 92 Calcium 8.8 Liver Function 02/09/17 Range/Units 04:12 Total Bilirubin 0.3 (0.2-1.2) mg/dL Direct Bilirubin 0.2 (0.0-0.5) mg/dL AST 30 (5-34) Units/L ALT 18 (0-55) Units/L Alkaline Phosphatase 83 (38-126) Units/L Albumin 3.3 L D (3.5-5.0) g/dL - ABG Interpretation ABG results: PT/INR, D-dimer PT 11.8 Seconds (9.4-12.1) 02/07/17 18:59 - Impressions Impressions Brain MRI 02/08/17 09:02 IMPRESSION: 1. No evidence of an acute infarct. 2. Mild-moderate chronic microvascular white matter ischemic disease is noted both supra and infratentorially. 3. There is a chronic subcortical infarct noted in the left superior frontal gyrus. D/ / 02/08/2017 14:43:05 Efrain Gabriel MD / amina Interpreting Provider: Efrain Gabriel MD Abdomen/Pelvis CT 02/08/17 19:19 IMPRESSION: 1. No evidence or radiopaque renal/ureteral calculus. No radiographic findings to suggest presence of acute obstructive uropathy. 2. Mild prominence of mural thickness of the gallbladder wall. Finding in part may be related to incomplete distention. True mild gallbladder wall thickening not excluded. Follow-up gallbladder ultrasound recommended for more complete evaluation if clinically indicated. 3. Moderate distention of the stomach. Finding could be related to recent ingestion of a meal as described above. Clinical correlation would be helpful. 4. Sigmoid diverticulosis with no findings to suggest changes of diverticulitis. Mild prominence of mural thickness of portion of the sigmoid could be related to incomplete distention or haustral hypertrophy related to underlying diverticular disease. True mild mural thickening cannot be excluded based on this examination. D/ / 02/08/2017 22:21:05 Brandin Rosado MD / saelna Interpreting Provider: Brandin Rosado MD Consult Discharge Plan - Plan Referrals: Ric Ramirez MD [Primary Care Provider] - 02/17/17 2:00 pm
[2017-02-09] MEDS ORDERED: ALPRAZolam 1 MG TABLET PO PRN (16:42)
[2017-02-09] MEDS: Lisinopril 20 MG TABLET PO SCH (17:06)
--- NOTE | 2017-02-09 17:21 | Carotid Imaging Report ---
Carotid Duplex Patient Name:Diana Browning Order Number:[id number] Procedure Date:02/08/2017 Date:5Age:61 yrs Gender:Female Lt BP:108 / 78 mmHg Rt.BP:104 / 72 mmHgHeart Rate: Location:[facility] Room #: 3B14 Food Production Associate:Oriana Oh, RDCS, RVT Referring MD:Minnie Liu CNP zipper repairer:Ric Ramirez MD Reading MD:Jose Maria oCles MD Primary Indications:AMS Risk Factors Yes/No Hypertension Yes Diabetes No Hypercholesterolemia Yes Smoker Previous Yes Hx of TIA No Hx of CVA No Impressions: The right carotid artery has minimal plaque throughout. The left carotid artery is normal throughout. Recommendations: After imaging the patient returned to their room. Test completed on 02/08/2017 at 11:10:55 am. Findings Carotid Duplex: Abdul scale imaging combined with Doppler flow analysis suggests normal findings on the left. Right: The right proximal common carotid artery has a PSV of 92 cm/s and a EDV of 28 cm/s. The right mid common carotid artery has a PSV of 66 cm/s and a EDV of 22 cm/s. The right distal common carotid artery has a PSV of 71 cm/s and a EDV of 30 cm/s. There is nonstenotic plaque in the right bifurcation with a PSV of 52 cm/s and a EDV of 14 cm/s. There is smooth, homogeneous calcified plaque. The right proximal internal carotid artery has a PSV of 54 cm/s and a EDV of 23 cm/s. The right mid internal carotid artery has a PSV of 74 cm/s and a EDV of 32 cm/s. The right distal internal carotid artery has a PSV of 70 cm/s and a EDV of 26 cm/s. The right eca has a PSV of 97 cm/s and a EDV of 28 cm/s. The right vertebral artery has a PSV of 52 cm/s and a EDV of 20 cm/s. There is antegrade spectral Doppler flow patterns. Left: The left proximal common carotid artery has a PSV of 82 cm/s and a EDV of 34 cm/s. The left mid common carotid artery has a PSV of 97 cm/s and a EDV of 37 cm/s. The left distal common carotid artery has a PSV of 96 cm/s and a EDV of 42 cm/s. The left bifurcation has a PSV of 86 cm/s and a EDV of 24 cm/s. The left proximal internal carotid artery has a PSV of 86 cm/s and a EDV of 37 cm/s. The left mid internal carotid artery has a PSV of 96 cm/s and a EDV of 46 cm/s. The left distal internal carotid artery has a PSV of 107 cm/s and a EDV of 55 cm/s. The left eca has a PSV of 113 cm/s and a EDV of 26 cm/s. The left vertebral artery has a PSV of 58 cm/s and a EDV of 24 cm/s. There is antegrade spectral Doppler flow patterns. Prior Study: No prior study available for comparison. Carotid Results Right PSV EDV Assessment Proximal CCA 92 28 Normal Mid CCA 66 22 Normal Distal CCA 71 30 Normal Bifurcation 52 14 Non Stenotic Plaque Proximal ICA 54 23 Normal Mid ICA 74 32 Normal Distal ICA 70 26 Normal ECA 97 28 Normal Vertebral Artery 52 20 Antegrade Flow Left PSV EDV Assessment Proximal CCA 82 34 Normal Mid CCA 97 37 Normal Distal CCA 96 42 Normal Bifurcation 86 24 Normal Proximal ICA 86 37 Normal Mid ICA 96 46 Normal Distal ICA 107 55 Normal ECA 113 26 Normal Vertebral Artery 58 24 Antegrade Flow Ratio's Right ICA/CCA Ratio: 1.12 ICA/CCA Values: 74/66 Left ICA/CCA Ratio: 1.10 ICA/CCA Values: 107/97 Updated by Jose Maria Coles MD on 02/09/2017 5:15:17 PM electronically signed on 02/09/2017 5:15:28 PM with status of Final
[2017-02-10 06:30] LABS: Basophils % 0.4 %; Eosinophils # 0.1 K/mcL (0.0-0.6); Hematocrit 36.8 % (35.3-44.9); Hemoglobin 12.1 g/dL (11.5-15.4); Immature Granulocytes % 0.4 % (0-4); Lymphocytes # 1.6 K/mcL (0.6-4.6); Lymphocytes % 29.4 %; Mean Corpuscular HGB Conc 32.9 g/dL (31.6-35.5); Mean Corpuscular Volume 88.2 fL (83.0-100.0); Mean Platelet Volume 9.2 fL (9.4-12.4); Monocytes # 0.5 K/mcL (0.0-1.3); Monocytes % 8.6 %; Neutrophils # 3.2 K/mcL (1.6-8.9); Platelet Count 165 K/mcL (140-400); Red Blood Count 4.17 M/mcL (3.82-4.97); Red Cell Distribution Width 12.7 % (11.5-14.5); Segmented Neutrophils % 59.2 %
[2017-02-10 06:43] LABS: BUN/Creatinine Ratio 10 (6-26); Blood Urea Nitrogen 8 mg/dL (7-20); Calcium 9.3 mg/dL (8.6-10.8); Carbon Dioxide 24 mEq/L (19-29); Chloride 111 mEq/L (98-109); Glucose 95 mg/dL (70-99); Osmolality,Calculated 296 (280-300); Sodium 144 mEq/L (136-145); eGFR For African Americans > 60 (> 60); eGFR For Non-African Americans > 60 (> 60)
[2017-02-10] MEDS: Aspirin Enteric Coated 81 MG Tablet PO SCH (08:36)
[2017-02-10] MEDS: Lisinopril 20 MG TABLET PO SCH (08:36)
[2017-02-10] MEDS: BuPROPion SR (12 HR) 150 MG TABLET PO SCH (08:36)
[2017-02-10] MEDS: Chloraseptic Spray 177 ML BOTTLE MM PRN (08:42)
[2017-02-10] MEDS: 0.9 % Sodium Chloride 1,000 ML IVC SCH (08:42)
--- NOTE | 2017-02-10 09:35 | Discharge Summary ---
Date of Encounter: 02/10/17 Time of Encounter: 08:05 - Discharge Diagnosis (1) TIA (transient ischemic attack) Priority: Primary Status: Resolved Comments: All symptoms have resolved. Her speech is clear, her gait is steady, she denies headache, n/v, blurred vision, dizziness. She will continue ASA and Plavix. Echo showed normal LV systolic function, LVEF 65%. Mild-moderate concentric left ventricular hypertrophy. Mild left ventricular diastolic dysfunction. Normal right ventricular size and function. Mildly dilated left atrium. No evidence of intracardiac shunting with agitated saline contrast (fair quality study). Mild tricuspid regurgitation. Mild-moderate pulmonary hypertension. Carotids: The right carotid artery has minimal plaque throughout.The left carotid artery is normal throughout. Head CT negative, Brain MRI revealed nothing acute, but chronic infarct L superior frontal gyrus. Head CT 02/07/17 19:21 IMPRESSION: No acute intracranial abnormality. D/ / Lamonte Hall MD / Lamonte Hall MD Interpreting Provider: Lamonte Hall MD Brain MRI 02/08/17 09:02 IMPRESSION: 1. No evidence of an acute infarct. 2. Mild-moderate chronic microvascular white matter ischemic disease is noted both supra and infratentorially. 3. There is a chronic subcortical infarct noted in the left superior frontal gyrus. D/ / 02/08/2017 14:43:05 Efrain Gabriel MD / amina Interpreting Provider: Efrain Gabriel MD Qualifiers: Transient cerebral ischemia type: unspecified Qualified Code(s): G45.9 - Transient cerebral ischemic attack, unspecified (2) ELA (acute kidney injury) Priority: Secondary Status: Resolved Comments: Resolved. Renal function WNL. (3) HTN (hypertension) Priority: Secondary Status: Chronic Comments: Pt is mildly hypertensive at discharge, only slightly above goal. Pt states that she didn't have her medications when she got here and missed a dose. Pt was hypotensive on arrival and states that she rarely misses doses of her medications and is normally normotensive. Pt will continue to monitor BP at home and has an appt with her PCP in the next week, can discuss any possible changes, if needed, at that time. Continue Lisinopril and Metoprolol Qualifiers: Hypertension type: essential hypertension Qualified Code(s): I10 - Essential (primary) hypertension (4) CAD (coronary artery disease) Priority: Secondary Status: Chronic Comments: Denies chest pain. Continue ASA ,Plavix, BB and Crestor. Qualifiers: Coronary Disease-Associated Artery/Lesion type: [place] artery [place] vs. transplanted heart: [place] heart Associated angina: without angina Qualified Code(s): I25.10 - Atherosclerotic heart disease of [place] coronary artery without angina pectoris (5) Thyroid disease Priority: Secondary Status: Chronic Comments: Labs WNL. Pt does not take medication. (6) Abdominal pain Priority: Secondary Status: Acute Comments: Pt reports 1/10 epigatric pain, mild tenderness with palpation. Pain has greatly improved since arrival and from yesterday's assessment. She denies n/v/d , constipation. Pt is able to eat and drink without difficulty and pain does not increase after meals. Pt will continue omeprazole 20mg po bid at home and will follow up with PCP within the week. Qualifiers: Abdominal location: unspecified location Qualified Code(s): R10.9 - Unspecified abdominal pain (7) Abnormal urinalysis Priority: Secondary Status: Acute Comments: Pt was treated for UTI. Final culture showed no pathogens isolated. Pt also states that her abd pain has decreased, rates it 1/10 today. (8) DVT prophylaxis Priority: Secondary Status: Chronic Comments: Heparin SQ. pt is ambulatory. (9) GERD (gastroesophageal reflux disease) Priority: Secondary Status: Chronic Comments: Chronic. I have changed her Omeprazole to 20mg po bid. Pt appears to have relief from abdominal pain. I have encouraged pt to see PCP as scheduled next week and discuss GB ultrasound and possible EGD. Qualifiers: Esophagitis presence: esophagitis presence not specified Qualified Code(s) : K21.9 - Gastro-esophageal reflux disease without esophagitis - Discharge Medications Home Medications: ALPRAZolam [Xanax 1 MG Tablet] 3 mg PO TID PRN 02/07/17 [History] Aspirin [Lo-Dose Aspirin EC] 81 mg PO DAILY 02/07/17 [History] BuPROPion SR (12 HR) [Wellbutrin SR] 150 mg PO BID 02/07/17 [History] Cholecalciferol (D-3) [Vitamin D] 5,000 unit PO BID 02/07/17 [History] Clopidogrel Bisulfate [Plavix] 75 mg PO DAILY 02/07/17 [History] HYDROcodone/Acet 10/325 mg [[place] 10-325 mg] 1 tab PO Q4HR PRN 02/07/17 [History ] Lisinopril [Zestril] 20 mg PO DAILY 02/07/17 [History] Metoprolol [Lopressor] 25 mg PO BID 02/07/17 [History] Nitroglycerin [Nitrostat] 0.4 mg SL PRN PRN 02/07/17 [History] Rosuvastatin [Crestor] 40 mg PO HS 02/07/17 [History] Venlafaxine HCl [Venlafaxine HCl ER] 150 mg PO BID 02/07/17 [History] Zolpidem [Ambien] 5 mg PO HS 02/07/17 [History] Omeprazole [PriLOSEC] 20 mg PO BID #30 02/10/17 [Rx] Allergies/Adverse Reactions: Allergies celecoxib [From Celebrex] Allergy (Verified 01/19/17 14:39) Hives Procedures/tests Complete & Pending: Procedures Performed prior 72 hours Category Date Time Status CT abd pelvis wo no iv no oral [CT] Routine Cat Scan 02/08/17 19:19 Completed MR head/brain wo con [MR] Routine MRI 02/08/17 09:02 Completed EV carotid duplex imaging BI Routine Y 02/08/17 22:44 Completed EV echocardiogram Routine Y 02/08/17 22:24 Completed Date of admission: 02/07/17 21:45 Primary care physician: Ric Ramirez MD Discharging clinician: Oriana Lewis Anticipated date of discharge: 02/10/17 - Patient Status Disposition: Home, Self-Care Condition: Good Functional capacity at discharge: independent ambulation Overall status at discharge: patient is back to baseline - Discharge Instructions Follow Up With: Ric Ramirez MD [Primary Care Provider] - 02/17/17 2:00 pm Additional Instructions: Please monitor your blood pressure as we discussed. Take readings to your PCP. Follow up with your PCP as scheduled on 02/17. Return to the ER immediately if your symptoms return or worsen, or for any other problems or concerns. Start taking your Omeprazole twice daily. Continue taking your normal medications. - Diet and Activity Activity: increase activity as tolerated Diet: advance to your usual diet Hospital course: Ms. Browning is a 61 year old female with prior history of CAD, [place] with stent placement 11 years ago, HTN, GERD, and anxiety, presented to the ED on 02/07 with c/o SOB and dysarthria. She was in the ED on 01/19 for similar symptoms and left AMA. Family reported that with this episode, pt was having difficulty with her speech and was interjecting things into the conversation that were not coherent or relevant. She denies extremity weakness with episode, denies chest pain, headache, blurred vision. Symptoms have resolved and pt is back to her baseline. Her speech is clear and her gait is steady, she is appropriate and answers questions appropriately. There are no neurological deficits on physical exam. MRI brain and CT head were negative for acute infarct or intracranial abnormality. MRI showed chronic infarct in left superior frontal gyrus. Pt is already on ASA and Plavix and will continue. Echocardiogram showed EF of 65% and mild LVDD. Doppler showed right caroitd with minimal plaque throughout and left carotid is normal throughout. Pt without breathing difficulties throughout admission. She has not required supplemental 02 and has not been in distress. Chest xray was negative for acute process. Lungs are diminished througout, no wheezing, rales, ronchi noted on exam. She denies chest pain or cough, fever. These symptoms and quick resolution are indicative of TIA. Pt developed diffuse abdominal pain during admission. She was quite tender to palpation and abdominal CT was ordered that showed mild mural thickness of gall bladder wall and it is recommended that pt have a gallbladder ultrasound on an outpatient basis. It also showed sigmoid diverticulosis without findings of diverticulitis. Pt was being treated for UTI, which was intially attributed as the cause of the pain, however, the final urine culture isolated no pathogens. Pt states that she has GERD and I started Omeprazole 20mg po bid and today she states that her pain is much better, 1/10. On inital presentation, pain was 10/ 10. Pt remains mildly tender to palpation in epigastric area, but is significantly better. She is able to eat and drink without difficulty and pain does not return or increase with food or drink. She denies n/v/d or constipation. Abdomen is soft with bs present, tender only in epigastric area. Pt will continue Omeprazole as ordered in hospital and states that she will follow up with her PCP on 02/17 and will discuss possible referral for EGD and gallbladder ultrasound. Pt's labs are WNL and vitals are stable at this time. Pt is appropriate and ready for discharge. - Time Spent with Patient Total time spent providing and/or coordinating discharge services: Less than 30 minutes - Constitutional Vitals: Temp Pulse Resp BP Pulse Ox 97.6 F 80 15 159/83 97 02/10/17 07:33 02/10/17 07:33 02/10/17 07:33 02/10/17 07:33 02/10/17 07:33 General appearance: Present: cooperative, A&O X 3, pleasant, no acute distress, answers questions appropriately - Head Head exam: Present: normal inspection - Eye Eye exam: Present: normal appearance, conjuntiva pink. Absent: nystagmus - ENT ENT exam: Present: mucous membranes moist, normal exam, normal external ear exam - Neck Neck exam general surgery: Present: normal inspection. Absent: lymphadenopathy , tenderness - Respiratory Respiratory exam: Present: decreased breath sounds, CTAB. Absent: chest wall tenderness, rales, respiratory distress, rhonchi, stridor, wheezes - Cardiovascular Cardiovascular exam: Present: RRR, +S1, +S2. Absent: clicks, diastolic murmur, gallop, systolic murmur - Expanded Cardiovascular Exam Peripheral pulses: 2+: Dorsalis Pedis (L) PM, Dorsalis Pedis (R) PM - GI/Abdominal GI/Abdominal exam: Present: normal bowel sounds, soft. Absent: hepatomegaly, tenderness - Extremities Exam Extremities exam: Present: full ROM, normal inspection, warm, radial pulses palpable and symmetrical. Absent: mottling, pedal edema, tenderness - Neurological Exam Neurological exam: Present: alert, oriented X3, no focal deficits, strengths equal and symetr throughout. Absent: facial droop, speech deficit - Skin Skin exam: Present: dry, intact, normal color, warm. Absent: rash, urticaria
[2017-02-10 10:35] VITALS: BP 144/96
== END 2017-02-10 11:50 | disposition home or self-care (01) ==
LOC: 3BNU 18:24 → EMEROO 18:24 → 3BNU 22:19
PROVIDERS: ADMIT Internal Medicine; ATTEND Nurse Practitioner Family

== ENCOUNTER 2017-04-30 12:35 | Observation (INO) ==
--- NOTE | 2017-04-30 12:48 | Emergency Department Note ---
Disposition Clinical Impression: Effusion of right knee, Inability to ambulate due to right knee Disposition: Admitted As Inpatient Condition: Fair Time of Disposition: 15:05 Lower Extremity Injury HPI - General Chief Complaint: ED Extremity Injury, Lower Stated Complaint: Right Knee injury Time Seen by Provider: 04/30/17 12:42 Source: patient, family Limitations: no limitations Nursing Notes Reviewed: Yes Vital Signs Reviewed: Yes - History of Present Illness HPI Narrative: Nontoxic-appearing 61-year-old female presents for evaluation of a right knee injury sustained earlier this morning from a mechanical fall. The patient states that she tripped while going to the restroom fell landing on her right knee. She complains of a significant amount of swelling, bruising, and pain with palpation. He is made worse with any attempts at range of motion as well as palpation. She has taken her regularly prescribed Percocet at home with only modest relief of pain. Pt Subjective Complaint: knee injury Injury location: Right knee Onset (ago): hour(s) (Approximately 2:00 AM) Mechanism of Injury: fall Context: fall Place: home Pain Severity: moderate Pain Scale: 6 Improves with: immobilization Worsens with: movement, palpation - Related Data Home Medications Medication Instructions Recorded Confirmed Aspirin [Lo-Dose Aspirin EC] 81 mg PO DAILY 02/07/17 04/30/17 BuPROPion SR (12 HR) [Wellbutrin 150 mg PO BID 02/07/17 04/30/17 SR] Clopidogrel Bisulfate [Plavix] 75 mg PO DAILY 02/07/17 04/30/17 HYDROcodone/Acet 10/325 mg [[place] 1 tab PO Q4HR PRN 02/07/17 04/30/17 10-325 mg] Lisinopril [Zestril] 20 mg PO DAILY 02/07/17 04/30/17 Metoprolol [Lopressor] 25 mg PO BID 02/07/17 04/30/17 Nitroglycerin [Nitrostat] 0.4 mg SL PRN PRN 02/07/17 04/30/17 Rosuvastatin [Crestor] 40 mg PO HS 02/07/17 04/30/17 Venlafaxine HCl [Venlafaxine HCl 150 mg PO BID 02/07/17 04/30/17 ER] Zolpidem [Ambien] 5 mg PO HS 02/07/17 04/30/17 Previous Rx's Medication Instructions Recorded Omeprazole [PriLOSEC] 20 mg PO BID #30 02/10/17 Allergies Allergy/AdvReac Type Severity Reaction Status Date / Time celecoxib [From Celebrex] Allergy Hives Verified 01/19/17 14:39 All systems ED: reviewed and negative except as stated. Constitutional: Denies: fever, chills, weakness, weight change Eyes: Denies: eye pain, eye discharge, vision change ENT ED: Denies: ear pain, throat pain, dental pain, hearing loss, epistaxis, congestion, dysphagia Cardiovascular: Denies: chest pain, palpitations, dyspnea on exertion, edema, syncope Respiratory: Denies: cough, dyspnea, wheezes, hemoptysis, stridor Gastrointestinal: Denies: abdominal pain, nausea, vomiting, diarrhea, constipation, hematemesis, melena, hematochezia Genitourinary: Denies: dysuria, frequency, hematuria, discharge Musculoskeletal: Reports: as per HPI, arthralgia (Right knee injury). Denies: back pain, neck pain, myalgia Integumentary: Denies: rash, abrasion, lesions Neurological: Denies: headache, weakness, numbness, paresthesias, confusion, abnormal gait, vertigo Psychiatric: Denies: anxiety, depression, suicidal thoughts, homicidal thoughts , auditory hallucinations, visual hallucinations Endocrine: Denies: fatigue Hematological/Lymphatic: Denies: easy bleeding, easy bruising Allergic/Immunologic: Denies: facial swelling, urticaria Past Medical History - Past Medical History Attestation: Yes The following information was validated with the patient. Source: patient, nursing notes reviewed Medical history: Reports: hyperlipidemia, hypertension, myocardial infarction, thyroid disease Surgical history: Reports: hysterectomy Psychiatric history: Reports: anxiety - Social History Smoking Status: Former smoker Smokeless Tobacco Status: No Alcohol use: Reports: none Drug use: Reports: none Physical Exam - General Limitations: no limitations General appearance: alert, in no apparent distress - Head Head exam: atraumatic, normocephalic, normal inspection - Eye Eye exam: Present: normal appearance, PERRL, EOMI. Absent: nystagmus - ENT ENT exam: mucous membranes moist - Neck Neck exam: Present: normal inspection, full ROM, trachea midline - Chest Chest inspection: Present: normal inspection, symmetric chest wall rise - Expanded Lower Extremity Exam Upper leg exam: Present: normal inspection, full ROM Knee exam: Present: tenderness (Right knee diffusely tender to palpation, anterior aspect), swelling (Extensive swelling noted, anterior right knee), ecchymosis (Extensive ecchymosis noted, anterior aspect of right knee), pain with valgus, pain with varus, knee extension intact. Absent: full ROM (Range of motion limited by pain, right knee), abrasion, laceration, erythema Lower leg exam: Present: normal inspection, full ROM Ankle exam: Present: normal inspection, full ROM Foot/toe exam: Present: normal inspection, full ROM Neurovascular/Tendon exam: Present: normal capillary refill. Absent: pulse deficit, tendon deficit, extremity cold to touch - Neurological Exam Neurological exam: Present: alert, oriented X3 - Psychiatric Psychiatric exam: Present: normal affect, normal mood - Skin Skin exam: Present: warm, dry, intact, normal color Course Course Narrative: 1345: I spoke with Dr. Herrera, orthopedist refrigeration houseman. Dr. Herrera recommends application of a knee immobilizer and also agrees that the patient should probably be admitted to the hospitalist service at school/occupational therapy, given that she has limited use of her right upper extremity due to the cast in place to her right wrist from a recent surgery. I have discussed this conversation with Dr. Hayden. Dr. Hayden has had a [id number] evaluation with the patient and agrees with the above plan. The patient is agreeable to this. 1500: I spoke with Dr. Fierro of the hospital service. Dr. Fierro has accepted the patient for admission to his service. Vital Signs Temperature 97.7 F 04/30/17 12:37 Pulse Rate 79 04/30/17 12:37 Respiratory Rate 16 04/30/17 12:37 Blood Pressure 90/68 04/30/17 12:37 O2 Sat by Pulse Oximetry 99 04/30/17 12:37 Temperature 98.3 F 04/30/17 16:57 Pulse Rate 66 04/30/17 16:57 Respiratory Rate 16 04/30/17 16:57 Blood Pressure 95/61 04/30/17 16:57 O2 Sat by Pulse Oximetry 96 04/30/17 16:57 Oxygen Delivery Oxygen Delivery Room Air Extremity Injury, Lower - Medical Records Medical records reviewed: Yes I reviewed the patient's medical records. - Lab Data Lab results reviewed: Yes I reviewed the patient's lab results. Lab results narrative: Lab Results 04/30/17 04/30/17 04/30/17 Range/Units 14:16 14:16 14:16 WBC 8.8 (4.3-11.1) K/mcL RBC 4.00 (3.82-4.97) M/mcL Hgb 11.9 (11.5-15.4) g/dL Hct 36.0 (35.3-44.9) % MCV 90.0 (83.0-100.0) fL MCH 29.8 (28.0-33.3) pg MCHC 33.1 (31.6-35.5) g/dL RDW 13.1 (11.5-14.5) % Plt Count 225 (140-400) K/mcL MPV 9.5 (9.4-12.4) fL Immature Gran % 1.0 (0-4) % Seg Neutrophils % 60.2 % Lymphocytes % 31.2 % Monocytes % 5.7 % Eosinophils % 1.3 % Basophils % 0.6 % Neutrophils # 5.3 (1.6-8.9) K/mcL Lymphocytes # 2.7 (0.6-4.6) K/mcL Monocytes # 0.5 (0.0-1.3) K/mcL Eosinophils # 0.1 (0.0-0.6) K/mcL Basophils # 0.1 (0.0-0.2) K/mcL PT 11.7 (9.4-12.1) Seconds INR 1.1 APTT 23.8 L (26.0-36.0) Seconds Sodium 138 (136-145) mEq/L Potassium 4.2 (3.5-4.5) mEq/L Chloride 107 (98-109) mEq/L Carbon Dioxide 19 (19-29) mEq/L BUN 15 (7-20) mg/dL Creatinine 1.43 H (0.57-1.11) mg/dL Est GFR ( Amer) 45 L (> 60) Est GFR (Non-Af Amer) 37 L (> 60) BUN/Creatinine Ratio 10 (6-26) Glucose 96 (70-99) mg/dL Calculated Osmolality 287 (280-300) Calcium 9.0 (8.6-10.8) mg/dL Result diagrams: 04/30/17 14:16 04/30/17 14:16 Lab Results 04/30/17 04/30/17 04/30/17 Range/Units 14:16 14:16 14:16 WBC 8.8 (4.3-11.1) K/mcL RBC 4.00 (3.82-4.97) M/mcL Hgb 11.9 (11.5-15.4) g/dL Hct 36.0 (35.3-44.9) % MCV 90.0 (83.0-100.0) fL MCH 29.8 (28.0-33.3) pg MCHC 33.1 (31.6-35.5) g/dL RDW 13.1 (11.5-14.5) % Plt Count 225 (140-400) K/mcL MPV 9.5 (9.4-12.4) fL Immature Gran % 1.0 (0-4) % Seg Neutrophils % 60.2 % Lymphocytes % 31.2 % Monocytes % 5.7 % Eosinophils % 1.3 % Basophils % 0.6 % Neutrophils # 5.3 (1.6-8.9) K/mcL Lymphocytes # 2.7 (0.6-4.6) K/mcL Monocytes # 0.5 (0.0-1.3) K/mcL Eosinophils # 0.1 (0.0-0.6) K/mcL Basophils # 0.1 (0.0-0.2) K/mcL PT 11.7 (9.4-12.1) Seconds INR 1.1 APTT 23.8 L (26.0-36.0) Seconds Sodium 138 (136-145) mEq/L Potassium 4.2 (3.5-4.5) mEq/L Chloride 107 (98-109) mEq/L Carbon Dioxide 19 (19-29) mEq/L BUN 15 (7-20) mg/dL Creatinine 1.43 H (0.57-1.11) mg/dL Est GFR ( Amer) 45 L (> 60) Est GFR (Non-Af Amer) 37 L (> 60) BUN/Creatinine Ratio 10 (6-26) Glucose 96 (70-99) mg/dL Calculated Osmolality 287 (280-300) Calcium 9.0 (8.6-10.8) mg/dL Creatine Kinase 62 (29-168) Units/L - Radiology Data Radiology results reviewed: Yes I reviewed the patient's radiology results. Knee X-Ray 04/30/17 12:45 IMPRESSION: Large soft tissue swelling at the anterior right knee. No evidence of acute fracture or dislocation of the right knee. D/ / Braulio Romero MD / Braulio Romero MD Interpreting Provider: Braulio Romero MD Attestation Statement - Attestation Attestation: Patient was seen in cooperation with the physician operations manager assistant. I reviewed the history physical assessment and plan and agree with findings. I also personally evaluated and had [id number] time with this patient. 61-year-old female currently in a cast on her right wrist for fall falls at home landing on her right knee. Comes in today because she has a large hematoma. Denies other injuries on falling. Is unable to ambulate secondary to pain. ED course vital signs are stable. Focused exam shows large tense hematoma to the right knee anteriorly. Neurologically intact. Distal pulses intact. ED course contacted orthopedics who with her being on Plavix was a little hesitant for us to tap it. Recommended admitting to the hospitalist service for PT OT and orthopedic consult and possible intervention. Patient was comfortable with the plan. Hospitalist will be notified. I agree with the physician operations manager assistant assessment and plan.
[2017-04-30 14:22] LABS: Basophils # 0.1 K/mcL (0.0-0.2); Basophils % 0.6 %; Eosinophils # 0.1 K/mcL (0.0-0.6); Eosinophils % 1.3 %; Hemoglobin 11.9 g/dL (11.5-15.4); Lymphocytes # 2.7 K/mcL (0.6-4.6); Lymphocytes % 31.2 %; Mean Corpuscular HGB Conc 33.1 g/dL (31.6-35.5); Mean Corpuscular Hemoglobin 29.8 pg (28.0-33.3); Mean Platelet Volume 9.5 fL (9.4-12.4); Monocytes # 0.5 K/mcL (0.0-1.3); Monocytes % 5.7 %; Neutrophils # 5.3 K/mcL (1.6-8.9); Platelet Count 225 K/mcL (140-400); Red Cell Distribution Width 13.1 % (11.5-14.5); Segmented Neutrophils % 60.2 %
[2017-04-30 14:27] LABS: INR 1.1; Prothrombin Time 11.7 Seconds (9.4-12.1)
[2017-04-30 14:30] LABS: Activated Partial Thrombo Time 23.8 Seconds (26.0-36.0)
[2017-04-30 14:34] LABS: Potassium 4.2 mEq/L (3.5-4.5)
[2017-04-30] MEDS ORDERED: Nitroglycerin 0.4 MG TAB.SUBL SL PRN (15:47)
[2017-04-30] MEDS ORDERED: Naloxone 0.4 MG/ML INJ IVP PRN (15:48)
--- NOTE | 2017-04-30 15:58 | Internal Med History&Physical ---
Date of Encounter: 04/30/17 Time of Encounter: 15:55 Assessment and Plan (1) Effusion of right knee Current visit: Yes Status: Acute Effusion of right knee status post fall. No dislocation or fractures noted upon x-ray. Right knee continued to swell, tenderness to palpation. Orthopedist consulted recommending immobilizer [place] 10/325 for pain PT/OT consult (2) Inability to ambulate due to right knee Current visit: Yes Status: Acute See plan above (3) ELA (acute kidney injury) Current visit: No Status: Resolved No prior history of kidney disease. Unclear etiology, start 0.9% normal saline at 75 mL per hour, avoid Nephrotoxic agents, BMP in the morning (4) CAD (coronary artery disease) Current visit: No Status: Chronic Continue aspirin, Plavix and now due to fall and risk for hemarthrosis, continue beta amy Qualifiers: Qualified Code(s): I25.10 - Atherosclerotic heart disease of [place] coronary artery without angina pectoris (5) HTN (hypertension) Current visit: No Status: Chronic History of hypertension. She is hypotensive at this time. 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 Hold beta blockers for now Qualifiers: Qualified Code(s): I10 - Essential (primary) hypertension (6) Thyroid disease Current visit: No Status: Chronic Continue Synthroid Internal Medicine - H&P: HPI Chief complaint: Diffusion right knee status post fall Admitted From: Home Plans for Post Hospital Care: Home History of present illness: Ms. Browning is a 61 year old female with a PMH of HIV, HTN, MS, hypothyroidism and anxiety. She presents today to [facility] status post fall. She reports that last night she was attentive to go to the restroom and her bedroom and fell, she denies any syncope, tachycardia, palpations, chest pain, dizziness, vision changes. Reporting significant swelling pain and tenderness of the right knee joint. X-ray was obtained and reveals soft tissue swelling at the anterior right knee no fractures and joint spaces are intact. She recently underwent a surgical procedure to her right thumb and she has been able to ambulate using crutches. She is being admitted PT and OT evaluation Past Med Surg Social Fam HX - Past Medical History Medical history: hyperlipidemia, hypertension, myocardial infarction, thyroid disease Psychiatric history: anxiety - Past Surgical History Surgical History: hysterectomy - Social History Smoking Status: Former smoker Smokeless Tobacco Status: No Alcohol use: none Drug use: none - Family History Father Hx Family Cardiac Disorders: Yes ([place]) Hx Family Respiratory Disorders: No Hx Family Cancer: Yes (Esophagus) Hx Family GI Disorders: No Hx Family Endocrine Disorder: No Hx Family Neuromuscular Disorders: No Hx Family Neurologic Disorders: No Hx Family HEENT Disorders: No Hx Family Autoimmune Disorders: No Sister Hx Family Cardiac Disorders: No Hx Family Respiratory Disorders: No Hx Family Cancer: Yes (Lung) Hx Family GI Disorders: No Hx Family Endocrine Disorder: No Hx Family Neuromuscular Disorders: No Hx Family Neurologic Disorders: No Hx Family HEENT Disorders: No Hx Family Autoimmune Disorders: No Mother Hx Family Cardiac Disorders: Yes (CHF) Hx Family Respiratory Disorders: No Hx Family Cancer: No Hx Family GI Disorders: No Hx Family Endocrine Disorder: No Hx Family Neuromuscular Disorders: No Hx Family Neurologic Disorders: No Hx Family HEENT Disorders: No Hx Family Autoimmune Disorders: No Internal Medicine - H&P: Meds Aspirin [Lo-Dose Aspirin EC] 81 mg PO DAILY 02/07/17 [History] BuPROPion SR (12 HR) [Wellbutrin SR] 150 mg PO BID 02/07/17 [History] Clopidogrel Bisulfate [Plavix] 75 mg PO DAILY 02/07/17 [History] HYDROcodone/Acet 10/325 mg [[place] 10-325 mg] 1 tab PO Q4HR PRN 02/07/17 [History ] Lisinopril [Zestril] 20 mg PO DAILY 02/07/17 [History] Metoprolol [Lopressor] 25 mg PO BID 02/07/17 [History] Nitroglycerin [Nitrostat] 0.4 mg SL PRN PRN 02/07/17 [History] Rosuvastatin [Crestor] 40 mg PO HS 02/07/17 [History] Venlafaxine HCl [Venlafaxine HCl ER] 150 mg PO BID 02/07/17 [History] Zolpidem [Ambien] 5 mg PO HS 02/07/17 [History] Omeprazole [PriLOSEC] 20 mg PO BID #30 02/10/17 [Rx] 3 Allergy/AdvReac Type Severity Reaction Status Date / Time celecoxib [From Celebrex] Allergy Hives Verified 01/19/17 14:39 All Systems PM: A 10-system review of systems was performed and is negative for pertinent findings except as documented above in the HPI. - Constitutional Constitutional: no chills, no fever(s), no night sweats - EENT Eyes: no change in vision, no discharge, no pain, no photophobia Ears: no ear discharge, no ear pain, no tinnitus Nose, mouth and throat: no dysphagia, no nasal discharge, no neck pain, no sore throat - Cardiovascular Cardiovascular ROS IM: no chest pain, no diaphoresis, no dyspnea, no edema, no lightheadedness, no palpitations, no syncope - Respiratory Respiratory: no cough, no dyspnea, no wheezing, no excessive phlegm production - Gastrointestinal Gastrointestinal: no abdominal pain, no diarrhea, no hematemesis, no hematochezia, no melena, no nausea, no vomiting - Genitourinary Genitourinary: no change in urinary stream, no dysuria, no flank pain, no hematuria - Musculoskeletal Musculoskeletal ROS IM: no numbness, no tingling Additional comments: She reports, swelling, pain, bruising and tenderness of right knee - Integumentary Integumentary IM: no rash, no unusual bruising - Neurological Neurological ROS: no confusion, no convulsions, no focal weakness, no numbness, no tingling, no tremor(s) - Hematologic/Lymphatic Hematologic/Lymphatic: no easy bruising - Constitutional Vitals: Temp Pulse Resp BP Pulse Ox 97.7 F 79 16 90/68 99 04/30/17 12:37 04/30/17 12:37 04/30/17 12:37 04/30/17 12:37 04/30/17 12:37 General appearance: Present: cooperative, A&O X 3, no acute distress, answers questions appropriately - Head Head exam: Present: atraumatic, normocephalic - Eye Eye exam: Present: EOMI, PERRL, conjuntiva pink, sclera anicteric Pupils: Present: PERRL - Neck Neck exam general surgery: Present: supple, trachea midline. Absent: lymphadenopathy - Respiratory Respiratory exam: Present: CTAB. Absent: accessory muscle use, rales, rhonchi, wheezes - Cardiovascular Cardiovascular exam: Present: RRR, +S1, +S2. Absent: diastolic murmur, gallop, rubs, systolic murmur - GI/Abdominal GI/Abdominal exam: Present: normal bowel sounds, soft, no peritoneal signs. Absent: distended, tenderness - Extremities Exam Extremities exam: Present: warm, radial pulses palpable and symmetrical. Absent : calf tenderness, cyanotic, pedal edema - Expanded Lower Extremities Exam Knee exam: Present: ecchymosis, effusion, swelling, tenderness. Absent: dislocation, warmth - Neurological Exam Neurological exam: Present: CN II-XII intact, oriented X3, no focal deficits. Absent: pronater drift, facial droop, speech deficit - Skin Skin exam: Present: dry, intact Internal Med - H&P Results - Labs CBC & Chem 7: 04/30/17 14:16 04/30/17 14:16 - Diagnostic Studies Other Images Status: image reviewed by me Additional comments: X-ray of right knee-anterior right knee soft tissue swelling. No fracture is joint space intact no dislocation. - VTE Reasons for not Prescribing Prophylaxis: Medical contraindication
[2017-04-30] MEDS ORDERED: *HR* Morphine 2 MG/ML SYRINGE IVP ONE (16:08)
[2017-04-30] MEDS ORDERED: *HR* Morphine 2 MG/ML SYRINGE ONE (16:13)
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
[2017-04-30] MEDS: 0.9 % Sodium Chloride 1,000 ML IVC SCH (17:16)
[2017-04-30 19:52] LABS: Bilirubin,Urine Small (Negative); Blood,Urine Negative (Negative); Clarity,Urine Clear (Clear); Color,Urine Yellow (Yellow); Glucose,Urine (UA) Normal (Normal); Ketones,Urine Negative (Negative); Leukocyte Esterase,Urine Negative (Negative); Nitrite,Urine Negative (Negative); PH,Urine 5.5 pH Units (5.0-8.0); Protein,Urine Negative (Neg-Trace); Specific Gravity,Urine 1.023 (1.010-1.025); Urobilinogen,Urine Normal (Normal)
--- NOTE | 2017-04-30 20:59 | Orthopedic Consult Note ---
Date of Encounter: 04/30/17 Time of Encounter: 20:56 Assessment and Plan (1) Prepatellar bursitis of right knee Current Visit: Yes Status: Acute Traumatic prepatellar bursitis to the right knee. I did discuss the diagnosis in detail with the patient. Treatment options include observation versus aspiration versus surgical drainage. I did recommend an attempted aspiration in order to improve symptoms. After informed consent was obtained I did sterilize the anterior knee area and placed an 18-gauge needle into the prepatellar bursa and attempted to aspirate the hematoma. Only about half a cc of dark bloody fluid could be aspirated. A second attempt in a slightly different area yielded same. A sterile compressive dressing and knee immobilizer was reapplied. At this point my recommendation is weightbearing as tolerated in the knee immobilizer to prevent the knee from bending which would exacerbate her pain. I recommend a compressive wrap to assist in resolution of the bursitis. This will likely take weeks to resolve. My recommendation in the meantime is to weight-bear as tolerated on the right lower extremity with the assistance of physical therapy. Nonweightbearing to the right upper extremity given her recent surgery. Hold Plavix if able to from a medical standpoint. She can follow in the office upon discharge in a week for further evaluation of the right knee. History of Present Illness HPI: Ms. Browning is a 61 year old female who has had a recent right basal joint arthroplasty with ligament reconstruction and tendon interposition by my colleague Dr. Gunter. She is doing well from this and is in a thumb spica cast. She sustained an injury earlier this morning when she fell in the bathroom. She landed directly on her right knee. She is on Plavix. She developed a traumatic bursitis and was admitted due to concerns for functioning at home. My evaluation patient complies of isolated pain to the right anterior knee area. The pain is controlled with a compressive wrap and knee immobilizer. She has no other new injuries. No numbness, tingling, or any other associated signs or symptoms. The pain is worse with bending of the knee and improved with rest and extension. No other modifying factors. Past Med Surg Social Fam HX - Past Medical History Medical history: hyperlipidemia, hypertension, myocardial infarction, thyroid disease Psychiatric history: anxiety - Past Surgical History Surgical History: hysterectomy - Social History Smoking Status: Former smoker Smokeless Tobacco Status: No Alcohol use: none Drug use: none - Family History Father Hx Family Cardiac Disorders: Yes ([place]) Hx Family Respiratory Disorders: No Hx Family Cancer: Yes (Esophagus) Hx Family GI Disorders: No Hx Family Endocrine Disorder: No Hx Family Neuromuscular Disorders: No Hx Family Neurologic Disorders: No Hx Family HEENT Disorders: No Hx Family Autoimmune Disorders: No Sister Hx Family Cardiac Disorders: No Hx Family Respiratory Disorders: No Hx Family Cancer: Yes (lung Ca) Hx Family GI Disorders: No Hx Family Endocrine Disorder: No Hx Family Neuromuscular Disorders: No Hx Family Neurologic Disorders: No Hx Family HEENT Disorders: No Hx Family Autoimmune Disorders: No Mother Hx Family Cardiac Disorders: Yes (CHF) Hx Family Respiratory Disorders: No Hx Family Cancer: No Hx Family GI Disorders: No Hx Family Endocrine Disorder: No Hx Family Neuromuscular Disorders: No Hx Family Neurologic Disorders: No Hx Family HEENT Disorders: No Hx Family Autoimmune Disorders: No Medications and Allergies Aspirin [Lo-Dose Aspirin EC] 81 mg PO DAILY 02/07/17 [History] BuPROPion SR (12 HR) [Wellbutrin SR] 150 mg PO BID 02/07/17 [History] Clopidogrel Bisulfate [Plavix] 75 mg PO DAILY 02/07/17 [History] HYDROcodone/Acet 10/325 mg [[place] 10-325 mg] 1 tab PO Q4HR PRN 02/07/17 [History ] Lisinopril [Zestril] 20 mg PO DAILY 02/07/17 [History] Metoprolol [Lopressor] 25 mg PO BID 02/07/17 [History] Nitroglycerin [Nitrostat] 0.4 mg SL PRN PRN 02/07/17 [History] Rosuvastatin [Crestor] 40 mg PO HS 02/07/17 [History] Venlafaxine HCl [Venlafaxine HCl ER] 150 mg PO BID 02/07/17 [History] Zolpidem [Ambien] 5 mg PO HS 02/07/17 [History] Omeprazole [PriLOSEC] 20 mg PO BID #30 02/10/17 [Rx] 3 Allergy/AdvReac Type Severity Reaction Status Date / Time celecoxib [From Celebrex] Allergy Hives Verified 01/19/17 14:39 All Systems Reviewed: Constitutional and musculoskeletal systems were reviewed and are negative unless otherwise stated in history of present illness. Physical Exam - Constitutional Vitals: Temp Pulse Resp BP Pulse Ox 98.5 F 69 18 96/63 96 04/30/17 18:27 04/30/17 18:27 04/30/17 18:27 04/30/17 18:27 04/30/17 18:27 CONSTITUTIONAL -Vitals reviewed -The patient is well developed, well nourished, well groomed PSYCHIATRIC -Fully alert and oriented -Pleasant mood RIGHT LOWER EXTREMITY Inspection shows a large traumatic bursitis which is actually quite impressive. It is moderately tender and though swollen is not tense. I can gently range the knee from 0 to about 30 degrees which then causes anterior knee pain. No knee effusion. She has an active straight leg raise without difficulty. The knee feels ligamentously stable to varus and valgus stresses. She can dorsiflex and plantarflex ankle and toes and the foot is sensate and well- perfused. Diagnostic Imaging: I did personally review and interpret x-rays of the right knee which show a traumatic bursitis without fracture or dislocation. Results - Labs Result Diagrams: 04/30/17 14:16 04/30/17 14:16 Labs: Abnormal lab results APTT 23.8 Seconds (26.0-36.0) L 04/30/17 14:16 Creatinine 1.43 mg/dL (0.57-1.11) H 04/30/17 14:16 Est GFR ( Amer) 45 (> 60) L 04/30/17 14:16 Est GFR (Non-Af Amer) 37 (> 60) L 04/30/17 14:16 Urine Bilirubin Small (Negative) H 04/30/17 19:44 All other labs normal. Consult Discharge Plan - Plan Referrals: iRc Ramirez MD [Primary Care Provider] -
[2017-04-30] MEDS: BuPROPion SR (12 HR) 150 MG TABLET PO SCH (21:32)
[2017-04-30] MEDS: *HR* HYDROcodone/Acet 10/325 mg TABLET PO PRN (21:32)
[2017-05-01] MEDS: *HR* HYDROcodone/Acet 10/325 mg TABLET PO PRN ×4 (03:36→19:46)
[2017-05-01 05:32] LABS: Basophils % 0.4 %; Eosinophils # 0.1 K/mcL (0.0-0.6); Eosinophils % 1.9 %; Hematocrit 31.7 % (35.3-44.9); Hemoglobin 10.4 g/dL (11.5-15.4); Immature Granulocytes % 0.9 % (0-4); Lymphocytes # 2.8 K/mcL (0.6-4.6); Mean Corpuscular HGB Conc 32.8 g/dL (31.6-35.5); Mean Corpuscular Hemoglobin 29.7 pg (28.0-33.3); Mean Corpuscular Volume 90.6 fL (83.0-100.0); Mean Platelet Volume 9.5 fL (9.4-12.4); Monocytes # 0.5 K/mcL (0.0-1.3); Monocytes % 6.9 %; Neutrophils # 3.8 K/mcL (1.6-8.9); Platelet Count 167 K/mcL (140-400); Red Cell Distribution Width 13.2 % (11.5-14.5); Segmented Neutrophils % 51.9 %
[2017-05-01 05:36] LABS: BUN/Creatinine Ratio 15 (6-26); Blood Urea Nitrogen 15 mg/dL (7-20); Calcium 8.5 mg/dL (8.6-10.8); Carbon Dioxide 20 mEq/L (19-29); Chloride 111 mEq/L (98-109); Glucose 88 mg/dL (70-99); Osmolality,Calculated 290 (280-300); Potassium 4.1 mEq/L (3.5-4.5); Sodium 140 mEq/L (136-145); eGFR For African Americans > 60 (> 60); eGFR For Non-African Americans 54 (> 60)
[2017-05-01] MEDS: 0.9 % Sodium Chloride 1,000 ML IVC SCH ×2 (06:35→19:59)
[2017-05-01] MEDS: BuPROPion SR (12 HR) 150 MG TABLET PO SCH ×2 (08:52→19:51)
[2017-05-01] MEDS: Aspirin Enteric Coated 81 MG Tablet PO SCH (08:52)
[2017-05-01] MEDS ORDERED: Lisinopril 20 MG TABLET PO SCH (09:00)
[2017-05-01] MEDS ORDERED: Aspirin Enteric Coated 81 MG Tablet PO SCH (09:00)
--- NOTE | 2017-05-01 15:41 | Internal Med Progress Note ---
Date of Encounter: 05/01/17 Time of Encounter: 15:38 - Assessment and plan (1) ELA (acute kidney injury) Current Visit: No Status: Resolved Assessment and plan: Diana Browning is a 61-year-old female with past medical history CAD, hypertension, hypothyroidism and osteoarthritis status post right thumb carpometacarpal joint arthroplasty was in to [facility] on with complaints of right knee pain after a fall at home. She was placed in observation status for further workup and treatment. 1. Traumatic prepatellar bursitis of right knee: Presented with right knee pain after fall at home. Right knee x-ray with large soft tissue swelling, no evidence of acute fracture or dislocation. Evaluated by orthopedic who attempted aspiration was less than 1 mL removed. Continue right knee immobilizer, compressive wrap to assist with bursitis. Plavix stopped. Weightbearing as tolerated. Will need to follow-up in one week at discharge. PT OT eval. Pain control. 2. Fall: Mechanical fall at home. No evidence of orthostasis. No further workup needed at this time. 3. Hypertension: Per history. BP controlled. Monitor BP and titrate PRN 4. CAD: with stent in 2011. Asymptomatic. Denies chest pain. Continue home ASA, BB, statin. Plavix stopped as she has been on dual antiplatelet therapy for over one year. 5. Hypothyroidism: per hx. Cont home levothyroxine 6. DT prophylaxis: Heparin (2) CAD (coronary artery disease) Current Visit: No Status: Chronic Qualifiers: Coronary Disease-Associated Artery/Lesion type: [place] artery [place] vs. transplanted heart: [place] heart Associated angina: without angina Qualified Code(s): I25.10 - Atherosclerotic heart disease of [place] coronary artery without angina pectoris (3) Effusion of right knee Current Visit: Yes Status: Acute (4) HTN (hypertension) Current Visit: No Status: Chronic Qualifiers: Hypertension type: essential hypertension Qualified Code(s): I10 - Essential (primary) hypertension (5) Thyroid disease Current Visit: No Status: Chronic - Subjective Interval history: Seen and examined at bedside. Patient is new to be, information obtained from chart review and patient report. Patient says she had a rough night, did not sleep well and had a lot of pain in the right knee. She does not feel that she is ready to go home today. She is receptive to therapy consult. Discussed with RN patient has not been taking when necessary pain medicine. Strongly encouraged to take as ordered in when needed to prevent pain from getting out of control. - Constitutional Vitals: Temp Pulse Resp BP Pulse Ox 98.2 F 80 16 104/69 96 05/01/17 11:18 05/01/17 14:03 05/01/17 14:03 05/01/17 14:03 05/01/17 14:03 General appearance: Present: cooperative, A&O X 3, no acute distress, answers questions appropriately - Head Head exam: Present: atraumatic, normocephalic - Eye Eye exam: Present: PERRL, conjuntiva pink, sclera anicteric Pupils: Present: PERRL - Neck Neck exam general surgery: Present: supple, trachea midline. Absent: lymphadenopathy - Respiratory Respiratory exam: Present: CTAB. Absent: accessory muscle use, rales, rhonchi, wheezes - Cardiovascular Cardiovascular exam: Present: RRR, +S1, +S2. Absent: diastolic murmur, gallop, rubs, systolic murmur - GI/Abdominal GI/Abdominal exam: Present: normal bowel sounds, soft, no peritoneal signs. Absent: distended, tenderness - Extremities Exam Extremities exam: Present: warm, radial pulses palpable and symmetrical. Absent : calf tenderness, cyanotic, pedal edema Additional comments: Right hand in cast. Right knee immobilizer. - Neurological Exam Neurological exam: Present: CN II-XII intact, oriented X3, no focal deficits. Absent: pronater drift, facial droop, speech deficit - Skin Skin exam: Present: dry, intact Internal Medicine: Result - Labs CBC & Chem 7: 05/01/17 04:52 05/01/17 04:52 Labs: Short CBC 05/01/17 Range/Units 04:52 WBC 7.4 (4.3-11.1) K/mcL Hgb 10.4 L D (11.5-15.4) g/dL Hct 31.7 L (35.3-44.9) % Plt Count 167 (140-400) K/mcL Neutrophils # 3.8 (1.6-8.9) K/mcL BMP 05/01/17 04:52 Sodium 140 Potassium 4.1 Chloride 111 H Carbon Dioxide 20 BUN 15 Creatinine 1.03 Glucose 88 Calcium 8.5 L Urine 11/03/17 Range/Units 19:44 Urine Color Yellow (Yellow) Urine Clarity Clear (Clear) Urine pH 5.5 (5.0-8.0) pH Units Ur Specific [place] 1.023 (1.010-1.025) Urine Protein Negative (Neg-Trace) mg/dL Urine Glucose (UA) Normal (Normal) mg/dL - ABG Interpretation ABG results: PT/INR, D-dimer PT 11.7 Seconds (9.4-12.1) 04/30/17 14:16 - VTE Reasons for not Prescribing Prophylaxis: Medical contraindication Consult Discharge Plan - Plan Referrals: Ric Ramirez MD [Primary Care Provider] -
[2017-05-02] MEDS: *HR* HYDROcodone/Acet 10/325 mg TABLET PO PRN ×4 (01:17→15:59)
[2017-05-02 04:42] LABS: Hemoglobin 9.6 g/dL (11.5-15.4); Mean Corpuscular HGB Conc 33.1 g/dL (31.6-35.5); Mean Corpuscular Volume 90.6 fL (83.0-100.0); Mean Platelet Volume 9.6 fL (9.4-12.4); Platelet Count 154 K/mcL (140-400)
[2017-05-02 05:00] LABS: BUN/Creatinine Ratio 15 (6-26); Blood Urea Nitrogen 12 mg/dL (7-20); Calcium 8.7 mg/dL (8.6-10.8); Carbon Dioxide 20 mEq/L (19-29); Chloride 113 mEq/L (98-109); Glucose 89 mg/dL (70-99); Osmolality,Calculated 289 (280-300); Potassium 4.2 mEq/L (3.5-4.5); Sodium 140 mEq/L (136-145); eGFR For African Americans > 60 (> 60); eGFR For Non-African Americans > 60 (> 60)
[2017-05-02] MEDS: Aspirin Enteric Coated 81 MG Tablet PO SCH (08:25)
[2017-05-02] MEDS: BuPROPion SR (12 HR) 150 MG TABLET PO SCH (08:25)
[2017-05-02] MEDS: 0.9 % Sodium Chloride 1,000 ML IVC SCH (08:27)
[2017-05-02] MEDS ORDERED: amLODIPine 5 MG TABLET PO SCH (09:00)
[2017-05-02 10:11] VITALS: BP 158/95
--- NOTE | 2017-05-02 11:53 | Orthopedics Progress Note ---
Date of Encounter: 05/02/17 Time of Encounter: 11:51 - Assessment and Plan (1) Prepatellar bursitis of right knee Current Visit: Yes Status: Acute Traumatic prepatellar bursitis to the right knee. I did discuss the diagnosis in detail with the patient. Treatment options include observation versus aspiration versus surgical drainage. I did recommend an attempted aspiration in order to improve symptoms. After informed consent was obtained I did sterilize the anterior knee area and placed an 18-gauge needle into the prepatellar bursa and attempted to aspirate the hematoma. Only about half a cc of dark bloody fluid could be aspirated. A second attempt in a slightly different area yielded same. A sterile compressive dressing and knee immobilizer was reapplied. At this point my recommendation is weightbearing as tolerated in the knee immobilizer to prevent the knee from bending which would exacerbate her pain. I recommend a compressive wrap to assist in resolution of the bursitis. This will likely take weeks to resolve. My recommendation in the meantime is to weight-bear as tolerated on the right lower extremity with the assistance of physical therapy. Nonweightbearing to the right upper extremity given her recent surgery. Hold Plavix if able to from a medical standpoint. She can follow in the office upon discharge in a week for further evaluation of the right knee. Subjective Interval history: S: No new complaints Expected anterior knee pain, reasonably controlled O: Afebrile and vital signs are stable Hemorrhagic bursitis of the prepatellar bursa on the right with diffuse ecchymosis up and down the leg The prepatellar bursa is not tense and is compressible Pain with passive knee flexion due to stretching anteriorly Neurovascularly intact distally A: Hemorrhagic prepatellar bursitis on the right P: Hold Plavix if okay with the primary team Compressive wrap to the right knee Knee immobilizer when ambulating Orthopedically stable for discharge Follow-up in the office as scheduled for another reevaluation or sooner if needed Objective Vital signs: Vital Signs Temp Pulse Resp BP Pulse Ox 05/02/17 10:09 98.8 F 82 16 158/95 94 05/02/17 06:38 99.1 F 68 15 168/94 96 05/02/17 02:53 97.9 F 76 16 126/82 98 05/01/17 22:35 98.1 F 82 18 124/79 97 05/01/17 18:25 98.2 F 71 17 113/77 94 05/01/17 15:46 97.9 F 78 16 116/81 98 05/01/17 14:03 80 16 104/69 96 Intake and Output 05/02/17 05/02/17 05/02/17 00:59 07:59 15:59 Intake Total 1120 / 1120 Output Total Balance 1120 / 1120 Intake: IV Fluids 1000 / 1000 0.9 % Sodium Chloride 1,000 ML 1000 / 1000 @ 75 mls/hr IVC .[id number] CELIA Rx #:[id number] Oral 120 / 120 Output: Urine Other: Meal Breakfast Percent of Meal Consumed 100% # Voids Weight Patient Weight 05/02/17 22:59 Weight 68.629 kg - Labs CBC & BMP: 05/02/17 03:55 05/02/17 03:55 Labs: Abnormal lab results RBC 3.20 M/mcL (3.82-4.97) L 05/02/17 03:55 Hgb 9.6 g/dL (11.5-15.4) L 05/02/17 03:55 Hct 29.0 % (35.3-44.9) L 05/02/17 03:55 APTT 23.8 Seconds (26.0-36.0) L 04/30/17 14:16 Chloride 113 mEq/L (98-109) H 05/02/17 03:55 Urine Bilirubin Small (Negative) H 04/30/17 19:44 - VTE Reasons for not Prescribing Prophylaxis: Medical contraindication Consult Discharge Plan - Plan Referrals: Ric Ramirez MD [Primary Care Provider] -
--- NOTE | 2017-05-02 14:36 | Discharge Summary ---
Date of Encounter: 05/02/17 Time of Encounter: 14:13 - Discharge Diagnosis (1) Effusion of right knee Priority: Primary Status: Acute Comments: Diana Browning is a 61-year-old female with past medical history CAD, hypertension, hypothyroidism and osteoarthritis status post right thumb carpometacarpal joint arthroplasty was in to [facility] on with complaints of right knee pain after a fall at home. She was found to have a traumatic prepatellar bursitis of right knee. She was discharged home on 05/02/2017 in stable condition with outpatient follow-up 1. Traumatic prepatellar bursitis of right knee: Presented with right knee pain after fall at home. Right knee x-ray with large soft tissue swelling, no evidence of acute fracture or dislocation. RLE CT with patella hematoma. Orthopedics attempted aspiration with less than 1 mL removed. Will likely take weeks to resolve. Cont right knee compression wrap and right leg immobilizer per Ortho recommendations. Okay for weight-bearing as tolerated. Plavix stopped. Will need to follow-up with Ortho in one week at discharge. 2. Fall: Mechanical fall at home. No evidence of orthostasis. No further workup needed at this time. 3. ELA: Cr 1.4 on arrival. Baseline normal. Repeat creatinine normalized with IV fluids. Recommend repeat CMP with PCP in 1-2 weeks. 3. Hypertension: Per history. BP medications initially held as she was hypotensive. Home medciations resumed as BP improved. Recommend follow-up with PCP in one week for BP recheck 4. CAD: with stent in 2011. Asymptomatic. Denied chest pain. Continue home ASA, BB, statin. Plavix stopped as she has been on dual antiplatelet therapy for over one year. Recommend follow-up with primary functional architect within 1-2 weeks. 5. Hypothyroidism: per hx. Cont home levothyroxine (2) CAD (coronary artery disease) Priority: Primary Status: Chronic Qualifiers: Coronary Disease-Associated Artery/Lesion type: [place] artery [place] vs. transplanted heart: [place] heart Associated angina: without angina Qualified Code(s): I25.10 - Atherosclerotic heart disease of [place] coronary artery without angina pectoris (3) HTN (hypertension) Priority: Primary Status: Chronic Qualifiers: Hypertension type: essential hypertension Qualified Code(s): I10 - Essential (primary) hypertension (4) Thyroid disease Priority: Primary Status: Chronic - Discharge Medications Home Medications: Aspirin [Lo-Dose Aspirin EC] 81 mg PO DAILY 02/07/17 [History] BuPROPion SR (12 HR) [Wellbutrin SR] 150 mg PO BID 02/07/17 [History] HYDROcodone/Acet 10/325 mg [[place] 10-325 mg] 1 tab PO Q4HR PRN 02/07/17 [History ] Lisinopril [Zestril] 20 mg PO DAILY 02/07/17 [History] Metoprolol [Lopressor] 25 mg PO BID 02/07/17 [History] Nitroglycerin [Nitrostat] 0.4 mg SL PRN PRN 02/07/17 [History] Rosuvastatin [Crestor] 40 mg PO HS 02/07/17 [History] Venlafaxine HCl [Venlafaxine HCl ER] 150 mg PO BID 02/07/17 [History] Zolpidem [Ambien] 5 mg PO HS 02/07/17 [History] Omeprazole [PriLOSEC] 20 mg PO BID #30 02/10/17 [Rx] Allergies/Adverse Reactions: 3 Allergy/AdvReac Type Severity Reaction Status Date / Time celecoxib [From Celebrex] Allergy Hives Verified 01/19/17 14:39 Procedures/tests Complete & Pending: Procedures Performed prior 72 hours Category Date Time Status CT LE RT wo con [CT] Stat Cat Scan 05/02/17 11:30 Completed Date of admission: 04/30/17 15:33 Primary care physician: Ric Ramirez MD Consults: 04/30/17 15:58 Consult to Occupational Therapy [CONS] Routine Comment: Evaluate, develop and implement POC Reason for Consult: Rt knee hematoma s/p fall. Unable to ambulate; cannot use crutches d/t recent Rt wrist/thumb surgery Consult to Orthopedic Surgery [CONS] Routine Consulting Provider: [facility] Reason for Consult: Rt knee hematoma s/p fall Call Completed: No Consult to Physical Therapy [CONS] Routine Comment: Evaluate, develop and implement POC Reason for Consult: Rt knee hematoma s/p fall. Unable to ambulate; cannot use crutches d/t recent Rt wrist/thumb surgery Discharging clinician: Kelly Mcmanus Anticipated date of discharge: 05/02/17 - Patient Status Disposition: Home, Self-Care Condition: Good Functional capacity at discharge: uses cane/walker Overall status at discharge: patient is progressing back to baseline - Discharge Instructions Instructions: Knee Bursitis (GEN) Follow Up With: Ric Ramirez MD [Primary Care Provider] - Sarabjit Bone MD [Non-Partnered Physician] - Yon Dixon DO [Partnered Physician] - Additional Instructions: Follow Up Appointment 1. Please call your family doctors office within 24 hours or next business day to schedule a follow up appointment. 2. Please keep appt with Dr. Greene as previously scheduled 3. Please call your Body Technician/Painter office within 24 hours or next business day to schedule a follow up appointment. - Diet and Activity Activity: ambulate only with your walker Diet: advance to your usual diet Interval History: Seen and examined at bedside. Patient says she feels a little better. She still has pain in right leg but says she is overall better and she wants to go home. She is able to bear weight and will be going home with sister and in law. Hospital course: Ms. Browning is a 61 year old female - Time Spent with Patient Total time spent providing and/or coordinating discharge services: - Constitutional Vitals: Temp Pulse Resp BP Pulse Ox 98.8 F 82 16 158/95 94 05/02/17 10:09 05/02/17 10:09 05/02/17 10:09 05/02/17 10:09 05/02/17 10:09 General appearance: Present: cooperative, A&O X 3, no acute distress, answers questions appropriately - Head Head exam: Present: atraumatic, normocephalic - Eye Eye exam: Present: PERRL, conjuntiva pink, sclera anicteric Pupils: Present: PERRL - Neck Neck exam general surgery: Present: supple, trachea midline. Absent: lymphadenopathy - Respiratory Respiratory exam: Present: CTAB. Absent: accessory muscle use, rales, rhonchi, wheezes - Cardiovascular Cardiovascular exam: Present: RRR, +S1, +S2. Absent: diastolic murmur, gallop, rubs, systolic murmur - GI/Abdominal GI/Abdominal exam: Present: normal bowel sounds, soft, no peritoneal signs. Absent: distended, tenderness - Extremities Exam Extremities exam: Present: joint swelling, warm, radial pulses palpable and symmetrical. Absent: calf tenderness, cyanotic, pedal edema Additional comments: Right knee with bruising and swelling. Tenderness to touch - Neurological Exam Neurological exam: Present: CN II-XII intact, oriented X3, no focal deficits. Absent: pronater drift, facial droop, speech deficit - Skin Skin exam: Present: dry, intact - VTE Reasons for not Prescribing Prophylaxis: Medical contraindication
== END 2017-05-02 16:36 | disposition home or self-care (01) ==
LOC: 3BNU 12:35 → EMEROO 12:35 → 3BNU 16:20
PROVIDERS: ADMIT Internal Medicine; ATTEND Internal Medicine